=== PATIENT | female | born 1995 | race Caucasian/White ===

== ENCOUNTER 2017-06-04 10:19 | Emergency (ER) | payer OTHER ==
[~2017-06-04] VITALS: Ht 157.5 cm; Wt 45.2 kg
[2017-06-04 10:26] VITALS: TEMP 36.9; Ht 157.5 cm; Wt 45.2 kg
[2017-06-04] MEDS ORDERED: SODIUM CHLORIDE 0.9% 1000ML 500 ML IV ONE (11:24)
[2017-06-04 11:36] LABS: HEMATOCRIT 34.3 % (37-47); HEMOGLOBIN 11.6 g/dL (12.0-16.0); MEAN CELL VOLUME 89.6 fL (80-100); MEAN CORPUSCULAR HEMOGLOBIN 30.3 pg (25-34); MEAN CORPUSCULAR HGB CONC 33.8 g/dl (32-36); MEAN PLATELET VOLUME 10.4 fL (7.4-10.4); PLATELET COUNT 184 K/uL (130-400); RED CELL DISTRIBUTION WIDTH CV 12.4 % (11.5-14.5); RED CELL DISTRIBUTION WIDTH SD 40.8 fL (36.4-46.3); WHITE BLOOD COUNT 5.62 K/uL (4.8-10.8)
[2017-06-04 11:44] LABS: CALCIUM 9.2 mg/dl (8.5-10.1); CREATININE 0.69 mg/dl (0.60-1.20); POTASSIUM 3.6 mmol/L (3.5-5.1)
[2017-06-04] MEDS ORDERED: KETOROLAC TROMETHAMINE 30 MG/ML VIAL IV STA (11:57)
--- NOTE | 2017-06-04 12:49 | DIAGNOSTIC IMAGING REPORT ---
KUB HISTORY: kidney stone, right flank pain COMPARISON: None. FINDINGS: The bowel gas pattern is unremarkable. There are no dilated loops of small bowel to suggest an obstruction. There is a punctate stone within the right kidney. No definite left renal calculi. Punctate calcification within the right deep pelvis. Moderate well-formed stool seen within the colon. No pneumoperitoneum or pneumatosis. IMPRESSION: 1. There is a nonspecific punctate calcific the right deep pelvis could this could represent a phlebolith or stone within the right ureterovesical junction. 2. There is also a punctate calcification overlying the right kidney which could represent a small stone. No left renal calculi. Electronically signed by: Car Ding M.D. 06/04/2017 12:48 PM Dictated Date/Time: 06/04/2017 12:46 PM
--- NOTE | 2017-06-04 13:06 | EMERGENCY ROOM VISIT NOTE ---
History First contact with patient: 11:31 Chief Complaint: KIDNEY STONE Stated Complaint: KIDNEY STONE History of Present Illness The patient is a 21 year old female who presents to the Emergency Room with complaints of right flank pain. The patient states that she has had pain intermittently in this area for the past week. She went to [place] [facility] on Sunday where they did a CAT scan and told her that she had several kidney stones. She then followed up with Dr. Gavin Reyes on . He told her that if she does not pass it in 2 weeks he will see her in the office on the for further plan. The patient states that when she is at home she is taking the hydrocodone and/or oxycodone as prescribed by different providers. She states this does help with the pain. She only missed one episode of nausea and vomiting on Sunday. She is currently taking Flomax as well. The patient states that she last took her hydrocodone at 12 PM last evening because she wanted to try and get to work today. She went to work and within 3 hours she had severe pain. That is why she came to the emergency room. The patient states that the pain has since then subsided. The patient denies any urinary symptoms of frequency, urgency, dysuria or hematuria. The patient denies any fever. Review of Systems 10 system review was performed and was negative unless stated otherwise history of present illness. Past Medical/Surgical History Kidney stone, pyelonephritis, ectopic Social History Smoking Status: Never Smoker Housing Status: lives with family Current/Historical Medications No Active Prescriptions or Reported Meds Physical Exam Vital Signs Date Time Temp Pulse Resp B/P (MAP) Pulse Ox O2 Delivery O2 Flow Rate FiO2 06/04/17 11:52 76 16 111/81 100 Room Air 06/04/17 10:26 36.9 86 16 111/77 99 Room Air Physical Exam GENERAL: 21-year-old white female appears in no acute distress. MENTAL Status: Alert and oriented 3. MOUTH: Mucosa is moist NECK: Supple, no lymphadenopathy noted. No carotid bruits noted. LUNGS: Clear auscultation without wheezes rales or rhonchi. CARDIAC: Regular rate and rhythm without murmur. Pulses is full and equal throughout. BACK: Right CVA tenderness noted. ABDOMEN: Positive bowel sounds all 4 quadrants. Soft, nontender to palpation without organomegaly or masses. EXTREMITIES: No cyanosis or edema noted. Medical Decision & Procedures ER Provider Diagnostic Interpretation: KUB HISTORY: kidney stone, right flank pain COMPARISON: None. FINDINGS: The bowel gas pattern is unremarkable. There are no dilated loops of small bowel to suggest an obstruction. There is a punctate stone within the right kidney. No definite left renal calculi. Punctate calcification within the right deep pelvis. Moderate well-formed stool seen within the colon. No pneumoperitoneum or pneumatosis. IMPRESSION: 1. There is a nonspecific punctate calcific the right deep pelvis could this could represent a phlebolith or stone within the right ureterovesical junction. 2. There is also a punctate calcification overlying the right kidney which could represent a small stone. No left renal calculi. Electronically signed by: Car Ding M.D. 06/04/2017 12:48 PM Dictated Date/Time: 06/04/2017 12:46 PM Laboratory Results 06/04/17 11:15 06/04/17 11:15 Test 06/04/17 11:10 06/04/17 11:15 Urine Color YELLOW Urine Appearance CLOUDY (CLEAR) Urine pH 8.5 (4.5-7.5) Urine Specific [place] 1.018 (1.000-1.030) Urine Protein NEG (NEG) Urine Glucose (UA) NEG (NEG) Urine Ketones NEG (NEG) Urine Occult Blood 3+ (NEG) Urine Nitrite NEG (NEG) Urine Bilirubin NEG (NEG) Urine Urobilinogen POS (NEG) Urine Leukocyte Esterase SMALL (NEG) Urine WBC (Auto) 10-30 /hpf (0-5) Urine RBC (Auto) >30 /hpf (0-4) Urine Hyaline Casts (Auto) 1-5 /lpf (0-5) Urine Epithelial Cells (Auto) 10-20 /lpf (0-5) Urine Bacteria (Auto) NEG (NEG) Urine Test NEG (NEG) Red Blood Count 3.83 M/uL (4.2-5.4) Mean Corpuscular Volume 89.6 fL (80-100) Mean Corpuscular Hemoglobin 30.3 pg (25-34) Mean Corpuscular Hemoglobin Concent 33.8 g/dl (32-36) RDW Standard Deviation 40.8 fL (36.4-46.3) RDW Coefficient of Variation 12.4 % (11.5-14.5) Mean Platelet Volume 10.4 fL (7.4-10.4) Anion Gap 4.0 mmol/L (3-11) Est Creatinine Clear Calc Drug Dose 90.5 ml/min Estimated GFR () 142.2 Estimated GFR (Non- 122.7 BUN/Creatinine Ratio 18.4 (10-20) Calcium Level 9.2 mg/dl (8.5-10.1) Medications Administered Medications (Trade) Dose Ordered Sig/Isabelle Route Start Time Stop Time Status Last Admin Dose Admin Sodium Chloride 500 ml @ 999 mls/hr Q31M ONCE IV 06/04/17 11:24 06/04/17 11:54 DC 06/04/17 11:24 999 MLS/HR ED Course Patient was evaluated. This is the first time she is being seen in the emergency room. I had the pillowcase sewer signed a release for records from [facility]. I contacted Nidhi Rios PA-C about the patient's case. She stated if her pain is currently under control she could go home and continue outpatient treatment. She will see her in the office tomorrow at 2:00 and schedule lithotripsy for Sunday. I discussed the treatment plan with the patient and she was in agreement. Prior to me seeing the patient IV access was obtained and the patient was given 1 L normal saline. CBC and differential, renal profile was ordered and were unremarkable. She also had a urinalysis revealed positive blood otherwise was unremarkable. The patient is resting comfortably at this time. Nidhi rios PA-C also recommended that I get a KUB today before discharging the patient to home. KUB was ordered interpreted by the radiologist as above. We do not have the records from [facility] at the time of discharge therefore I told the paralegal secretary to make sure that the records are scanned in to the patient's chart so that Nidhi Rios will have them to look at tomorrow at her appointment. Patient was discharged home in stable condition. Medical Decision Since the patient was at the ER 3 different 2 at [place] and when here I felt that I needed to contact urology about the patient. Patient did not seem in any distress while she was here therefore he did not feel she needs to be admitted. The patient was in agreement. Nidhi Rios PA-C is willing to see the patient in the office tomorrow at 2 PM. [place] Drug Monitoring Program Search Results: patient reviewed within database Medication Reconcilliation Current Medication List: was personally reviewed by me Blood Pressure Screening Patient's blood pressure: Normal blood pressure Impression Primary Impression: Right flank pain Additional Impression: Kidney stone on right side Departure Information Dispostion Home / Self-Care Condition GOOD Prescriptions No Active Prescriptions or Reported Meds Referrals Jameel Santos D.O. (PCP) Forms HOME CARE DOCUMENTATION FORM, IMPORTANT VISIT INFORMATION Patient Instructions Kidney Stones - [facility] Additional Instructions Push fluids. Continue all medications as prescribed by urology. Do not take any ibuprofen! Keep scheduled appointment with Nidhi Rios PA-C tomorrow at 2 PM in the urology office at [place]. If symptoms should worsen in the interim, return to ER. Problem Qualifiers
[2017-06-04 13:41] VITALS: BP 111/81; PULSE 79; O2SAT 99
--- NOTE | 2017-06-06 17:54 | Pharmacy Progress Note ---
ED Pharmacist Culture FollowUp Date of Service: Jun 06, 2017. Lactobacillus and Gardnerella isolated from urine culture. Isolation does not always indicate infection. Patient denied urinary symptoms (frequency, urgency, dysuria, hematuria). She is being followed by urology. WBC 5.62, temp 36.9, UA with 10-20 epithelial cells. No intervention required. Case discussed w Dr. Martin.
[2017-06-07] MEDS ORDERED: OXYC7.5T65 PO (09:00)
[2017-06-07] MEDS ORDERED: TAMS0.4C38 PO (09:00)
[2017-06-08] MEDS ORDERED: NITR1CAP33 PO (08:53)
[2017-06-08] MEDS ORDERED: OXYC-57 PO (08:53)
== END 2017-06-04 13:42 | disposition home or self-care (01) ==
LOC: C.EDB 10:21 → MERGE 10:21 → C.EDC 13:42
DX: N20.0 Calculus of kidney (principal); R10.9 Unspecified abdominal pain

== ENCOUNTER → 2017-06-07 | Outpatient (CLI) | payer OTHER ==
[~2017-06-07] MED LIST: NITR1CAP33 PO; OXYC-57 PO; OXYC7.5T65 PO; TAMS0.4C38 PO
--- NOTE | 2017-06-07 18:36 | DIAGNOSTIC IMAGING REPORT ---
KUB HISTORY: Right-sided nephrolithiasis. N20.0 NephrolithiasisTO BE DONE EITHER THE NIGHT BEFORE OR MORNI COMPARISON: KUB 06/04/2017, CT 05/29/2017 FINDINGS: The bowel gas pattern is non-obstructive. There is no organomegaly. Bilateral renal shadows are obscured by bowel gas. Right-sided nephrolithiasis noted with calculi measuring up to 2 mm. Previously seen left nephrolithiasis are not visualized. Previously described punctate calcification of the right hemipelvis is also not identified. Moderate stool volume of the rectosigmoid. No pneumoperitoneum or pneumatosis. No fracture. IMPRESSION: 1. Previously described punctate calcification of the right hemipelvis is not identified on today's study. 2. Right-sided nephrolithiasis without definite ureteral calculi identified. Electronically signed by: Reynaldo Peoples M.D. 06/07/2017 6:34 PM Dictated Date/Time: 06/07/2017 6:32 PM
== END | disposition home or self-care (01) ==
LOC: C.RAD 17:33
PROVIDERS: ATTEND Nurse Practitioner Adult Health
DX: N20.0 Calculus of kidney (principal)

== ENCOUNTER → 2017-06-08 | Day surgery (SDC) | payer OTHER ==
[2017-06-07 09:01] VITALS: Ht 157.5 cm; Wt 45.5 kg
[~2017-06-08] VITALS: Ht 157.5 cm; Wt 45.5 kg
[~2017-06-08] MED LIST changes: +ATROPINE SULFATE 0.1 MG/ML 5ML SYR IV PRN; +CEFAZOLIN SOD 1000MG/7.5 ML IV PUSH IV ONE; +CIPROFLOXACIN / D5W 400 MG IV SCH; +DEXAMETHASONE SOD INJ 4 MG/ML VIAL ONE; +EpHEDrine SULFATE INJ 50 MG/ML AMP IV PRN; +FENTANYL CITRATE INJ 50 MCG/1 ML 2 ML VIAL IV PRN; +FENTANYL CITRATE INJ 50 MCG/1 ML 2 ML VIAL ONE; +HYDROmorphone INJ 0.5 MG/0.5 ML SYR IV PRN; +LACTATED RINGER'S 1000ML 1,000 ML IV SCH; +LIDOCAINE HCL 2% 2 ML VIAL (20MG/ML) ONE; +MIDAZOLAM HCL 1 MG/ML 2ML VIAL ONE; +NURSING VERBAL MED ORDER ONE; +ONDANSETRON INJ 2 MG/ML 2 ML VIAL IV PRN; +ONDANSETRON INJ 2 MG/ML 2 ML VIAL ONE; +PHENYLEPHRINE 100MCG/ML 5ML SYR IV PRN; +PROMETHAZINE HCL INJ 12.5 MG in SODIUM CHLORIDE 0.9% 50ML 50 ML IV PRN; +PROPOFOL IV EMULSION 10 MG/ML 20 ML VIAL IV ONE
--- NOTE | 2017-06-08 08:11 | History & Physical Bridge - SC ---
H&P Re-Evaluation Bridge Note: I have examined the patient, reviewed the History & Physical and in the interval since the performance of the History & Physical I have noted the following changes of clinical significance: No changes noted The Kub From June 07 does not show the stone in the pelvis but the pt has not seen it pass and continues to have intermittent pain and burning with urination . Reviewed films with pt and pts mother and will see if stone can be seen in pelvis and if not willl see if r renal stone which is larger than pelvic stone can be seen . They wish to proceed . Did discuss small size of stone and that normally would not do eswl for stones this size but they are trying to avoid ureteroscopy .Will not put her to sleep if stone not seen
--- NOTE | 2017-06-08 08:51 | [facility] Post Operative Brief Note ---
Immediate Operative Summary Operative Date Jun 08, 2017. Pre-Operative Diagnosis Right Renal Calculi Post-Operative Diagnosis Same Procedure(s) Performed Right Extracorporeal Shock Wave Lithotripsy Surgeon Dr. Virginia Warner Preforming Machine Operator Surgeon(s) None Estimated Blood Loss 0 Findings Consistent with Post-Op Diagnosis Specimens None Anesthesia Type General
--- NOTE | 2017-06-08 08:54 | Discharge Instructions-SurgCtr ---
Discharge Instructions Date of Service Jun 08, 2017. Visit Reason for Visit: Stones Discharge Discharge Diagnosis / Problem: post op r renal eswl Discharge Goals Goal(s): Decrease discomfort, Improve disease control Activity Recommendations Activity Limitations: per Instructions/Follow-up section (no driving on narcotics) Anesthesia . Post Anesthesia Instructions: If you have had General Anesthesia or IV Sedation: * Do not drive today. * Resume driving when surgeon permits. * Do not make important decisions or sign legal documents today. * Call surgeon for: 1. Temperature elevations greater than 101 degrees F. 2. Uncontrollable pain. 3. Excessive bleeding. 4. Persistent nausea and vomiting. 5. Medication intolerance (nausea, vomiting or rash). * For nausea and vomiting use only clear liquids such as: tea, soda, bouillon until nausea subsides, then gradually increase diet as tolerated. * If you have any concerns or questions, call your surgeon's office. If physician is unavailable and it is an emergency, call 911 or go to the nearest emergency room. . Diet Recommendations Home Diet: resume previous diet Procedures Procedures Performed: Right Extracorporeal Shock Wave Lithotripsy Pending Studies Studies pending at discharge: no Medical Emergencies . Who to Call and When: Medical Emergencies: If at any time you feel your situation is an emergency, please call 911 immediately. . Non-Emergent Contact Non-Emergency issues call your: Urologist Call Non-Emergent contact if: temperature is above 101 . . "Provider Documentation" section prepared by Seth Warner. .
[2017-06-08 09:55] VITALS: TEMP 36.6
[2017-06-08 10:21] VITALS: BP 108/69; PULSE 63; O2SAT 100
--- NOTE | 2017-06-08 10:27 | OPERATIVE REPORT ---
DATE OF OPERATION: 06/08/2017 PROCEDURE PERFORMED: Right renal ESWL. SURGEON: Dr. Seth Warner ANESTHESIA: General. PREOPERATIVE DIAGNOSIS: Right ureteral and right renal stone. HISTORY OF PRESENTATION AND HOSPITAL COURSE: The patient is a 21-year-old female who had early in the week been seen in the Emergency Room and then later in the week, had a CT that showed a small distal stone and a KUB that confirmed it on 06/04/2017, but the KUB yesterday did not show the stone. The patient stated that she continued to have off and ongoing pain, although less severe, but she has continued dysuria. She had been on antibiotics, but taken off when she grew out Gardnerella which was consistent with contamination. She denied any fever. I discussed the situation with the patient and the patient's mother in the holding area. I explained that I could not do lithotripsy on the distal stone that was not visible. I will be willing to attempt to visualize it without giving her anesthesia. The question would be worthwhile to do lithotripsy on a very small 2 mm renal stone given that the 1 mm stone in the pelvis, she would have trouble passing. I did agree that I would do this if do not see the distal stone and they agreed as well. Normally I would not have done this, but given the difficulty she had passing that stone, we agreed that it would be worthwhile and she wished to proceed with that. DESCRIPTION OF THE PROCEDURE: She was taken to the cysto suite without having anesthesia. The distal stone was not seen and so we proceeded to localize the 2 mm renal stone which was seen. She was given anesthesia, prepped, and then she was given shock waves that were focused on the stone up to level 3. There appeared to be fragmentation at level 3 and so was never taken above that because of its small size and the stone became quite small and difficult to see by the end of the procedure. The patient was then transferred to the recovery room in stable condition. I attest to the content of the Intraoperative Record and any orders documented therein. Any exception s are noted below.
--- NOTE | 2017-06-08 10:31 | Anesthesiology Progress Note ---
Anesthesia Post Op Note Date & Time Jun 08, 2017 at 10:30 Vital Signs Pain Intensity: 3 Vital Signs Past 12 Hours Date Time Temp Pulse Resp B/P (MAP) Pulse Ox O2 Delivery O2 Flow Rate FiO2 06/08/17 10:21 63 16 108/69 (82) 100 Room Air 06/08/17 09:55 36.6 58 16 105/71 (82) 100 Room Air 06/08/17 09:47 36.5 57 14 111/80 97 Room Air 06/08/17 09:09 36.2 71 16 114/66 100 Mask 6 06/08/17 06:24 36.9 82 16 105/71 (82) 99 Room Air Notes Mental Status: alert / awake / arousable, participated in evaluation Pt Amnestic to Procedure: Yes Nausea / Vomiting: adequately controlled Pain: adequately controlled Airway Patency, RR, SpO2: stable & adequate BP & HR: stable & adequate Hydration State: stable & adequate Anesthetic Complications: no major complications apparent
== END | disposition home or self-care (01) ==
LOC: X.SURG 06:06
PROVIDERS: ATTEND Urology
DX: N20.0 Calculus of kidney (principal); N20.1 Calculus of ureter; Z84.1 Family history of disorders of kidney and ureter; Z83.3 Family history of diabetes mellitus

== ENCOUNTER → 2017-06-18 | Outpatient (CLI) | payer OTHER ==
[~2017-06-18] MED LIST changes: -ATROPINE SULFATE 0.1 MG/ML 5ML SYR IV PRN; -CEFAZOLIN SOD 1000MG/7.5 ML IV PUSH IV ONE; -CIPROFLOXACIN / D5W 400 MG IV SCH; -DEXAMETHASONE SOD INJ 4 MG/ML VIAL ONE; -EpHEDrine SULFATE INJ 50 MG/ML AMP IV PRN; -FENTANYL CITRATE INJ 50 MCG/1 ML 2 ML VIAL IV PRN; -FENTANYL CITRATE INJ 50 MCG/1 ML 2 ML VIAL ONE; -HYDROmorphone INJ 0.5 MG/0.5 ML SYR IV PRN; -LACTATED RINGER'S 1000ML 1,000 ML IV SCH; -LIDOCAINE HCL 2% 2 ML VIAL (20MG/ML) ONE; -MIDAZOLAM HCL 1 MG/ML 2ML VIAL ONE; -NURSING VERBAL MED ORDER ONE; -ONDANSETRON INJ 2 MG/ML 2 ML VIAL IV PRN; -ONDANSETRON INJ 2 MG/ML 2 ML VIAL ONE; -PHENYLEPHRINE 100MCG/ML 5ML SYR IV PRN; -PROMETHAZINE HCL INJ 12.5 MG in SODIUM CHLORIDE 0.9% 50ML 50 ML IV PRN; -PROPOFOL IV EMULSION 10 MG/ML 20 ML VIAL IV ONE
--- NOTE | 2017-06-18 10:01 | DIAGNOSTIC IMAGING REPORT ---
KUB CLINICAL HISTORY: 21 years-old Female presenting with N20.0 Nephrolithiasis. TECHNIQUE: Single supine view of the abdomen was obtained. COMPARISON: CT from 05/29/2017 and plain radiograph from 06/07/2017. FINDINGS: Nonobstructive bowel gas pattern. Moderate stool burden. No gross pneumoperitoneum. Punctate calculus noted in the right kidney. No radiographically apparent left renal calculi though calculus was noted on prior CT. Additional lower pole right renal calculus is not apparent. No ureteral calculi. Osseous structures normal. Lung bases clear. IMPRESSION: 1. Punctate right renal calculus. Nonvisualization of left renal calculi. No radiographic apparent ureteral calculi. Electronically signed by: Jani Sabillon M.D. 06/18/2017 9:59 AM Dictated Date/Time: 06/18/2017 9:57 AM
== END | disposition home or self-care (01) ==
LOC: C.RAD 09:21
PROVIDERS: ATTEND Urology
DX: N20.0 Calculus of kidney (principal)

== ENCOUNTER → 2017-09-12 | Outpatient (CLI) | payer OTHER | END | disposition home or self-care (01) | LOC: C.LABSPEC 11:29 | PROVIDERS: ATTEND Nurse Practitioner Family | DX: N39.0 Urinary tract infection, site not specified (principal) ==

== ENCOUNTER → 2017-09-24 | Outpatient (CLI) | payer OTHER ==
--- NOTE | 2017-09-24 12:31 | DIAGNOSTIC IMAGING REPORT ---
RENAL ULTRASOUND HISTORY: Urinary tract infection. COMPARISON: None. FINDINGS: Right kidney: 9.3 cm. No hydronephrosis. Normal corticomedullary differentiation and cortical thickness. Left kidney: 10.3 cm. No hydronephrosis. Normal corticomedullary differentiation and cortical thickness. Bladder: The bladder is not well-distended. No definite bladder wall thickening. The bilateral ureteral jets were identified. IMPRESSION: Normal renal ultrasound. Electronically signed by: Car Ding M.D. 09/24/2017 12:30 PM Dictated Date/Time: 09/24/2017 12:29 PM
== END | disposition home or self-care (01) ==
LOC: C.ULTR 11:55
PROVIDERS: ATTEND Nurse Practitioner Family
DX: N39.0 Urinary tract infection, site not specified (principal)

== ENCOUNTER → 2017-09-24 | Outpatient (CLI) | payer OTHER | END | disposition home or self-care (01) | LOC: C.LABSPEC 11:39 | PROVIDERS: ATTEND Urology | DX: N39.0 Urinary tract infection, site not specified (principal) ==

== ENCOUNTER 2019-06-28 13:18 | Inpatient (IN) ==
[2019-06-28] MEDS ORDERED: KETOROLAC TROMETHAMINE 15 MG/ML VIAL IV STA (13:33)
[2019-06-28] MEDS ORDERED: SODIUM CHLORIDE 0.9% 1000ML 1,000 ML IV ONE (13:33)
--- NOTE | 2019-06-28 13:39 | Emergency Department Note ---
History of Present Illness General Chief complaint: Kidney Stone Stated complaint: KIDNEY STONE - POSSIBLE UTI WELL Time Seen by Provider: 06/28/19 13:25 Source: patient Mode of arrival: ambulatory Limitations: no limitations History of Present Illness Provider complaint: Left flank pain Onset (ago): week(s) 1 Location: back Radiation: abdomen Severity: moderate Pain Consistency: + intermittent Maximum Pain Intensity: 5 Quality: + stabbing Relieved By: + none Associated symptoms: + other (Burning on urination with frequency); no chest pain, no cough, no fever/chills, no nausea/vomiting and no shortness of breath This is a 23-year-old female with a history of multiple kidney stones in the past presenting with left flank pain for the past week. It is located in the left mid flank and sometimes radiates into the left lower abdomen. She rates it a 5 out of 10 in severity. It is intermittent. It is sharp in nature. No alleviating factors. She states it feels similar to her previous kidney stones. She had an x-ray done 2 days ago at her PCPs office which did not show any signs of a stone. She has urinary symptoms associated with her pain including burning on urination as well as urinary frequency. She did take Azo and so her urine is discolored. She denies any fever, vomiting, chest pain, shortness of breath, cough or cold symptoms or known exposure to COVID-19. She denies any chance of or any abnormal vaginal discharge or bleeding. Home Medications Home Medications Medication Instructions Recorded Confirmed Type No Known Home Medications 06/28/19 06/28/19 History Allergies Allergy/AdvReac Type Severity Reaction Status Date / Time Cipro Allergy Unknown Itching/Irr Verified 06/08/17 07:49 itation ciprofloxacin Allergy Unknown Itching/Irr Verified 06/28/19 15:30 itation nitrofurantoin Allergy Itching Verified 06/28/19 15:30 [From Macrobid] Past Med/Surg History Medical History (Updated 06/28/19 @ 17:52 by Jg Eng MD) Kidney stones Surgical History H/O lithotripsy [place] teeth extracted Social History Feels Safe at Home: Yes Smoking Status: Never smoker Hx Alcohol Use: Yes (last drink 0.5 mimosa June 18) Alcohol Intake Frequency: Rarely Review of Systems See HPI for pertinent positives & negatives. and A total of 10 systems reviewed and were otherwise negative Physical Exam Vital Signs Vital Signs - 24 hr 06/28/19 13:19 06/28/19 14:26 Temperature 36.7 C Temperature Source Oral Pulse Rate 86 Pulse Rate [Finger] 112 H Respiratory Rate 20 20 Respiratory Effort / Characteristics Non-Labored Respiratory Depth Normal Blood Pressure 118/90 Blood Pressure [Right Arm] 131/88 Blood Pressure Mean 99 Blood Pressure Mean [Right Arm] 102 Pulse Oximetry 99 100 Oxygen Delivery Method Room Air Room Air Sepsis Recent Fever Within 48 Hours No Sepsis Action Taken by Nursing No Action Required Constitutional: Vital signs reviewed. Eyes: Pupils are equal round reactive to light. Conjunctiva are noninjected. ENT: Pharynx is clear without erythema or exudate. Mucous membranes are moist. Neck supple without meningeal signs. Respiratory: Clear to auscultation bilaterally. Breath sounds are equal bilaterally. Cardiovascular: Regular rate and rhythm. No rubs or gallops. GI: Soft, nondistended and nontender. Bowel sounds are present. Musculoskeletal: No peripheral edema. No lower extremity tenderness. No CVA tenderness. Integumentary: No cyanosis. or jaundice. Neurological: The patient is awake and alert. No focal deficits. Psychiatric: Normal affect. Not anxious appearing. Course Administered Medications Discontinued Medications Sodium Chloride (Nss 1000ml) 1,000 mls @ 999 mls/hr IV .Q1H1M ONE Stop: 06/28/19 14:33 Last Infusion: 06/28/19 14:34 Dose: 0 mls/hr Documented by: [id number] Admin: 06/28/19 13:40 Dose: 999 mls/hr Documented by: [id number] Ketorolac Tromethamine (Toradol) 10 mg IV NOW STA Stop: 06/28/19 13:34 Last Admin: 06/28/19 13:45 Dose: 10 mg Documented by: [id number] Medical Decision Making Differential Diagnosis Renal colic, obstructive uropathy, UTI, pyelonephritis, strain Medical Records Attestation: I reviewed the patient's medical records. I did perform a limited focused review of portions of the patient's old chart on the electronic medical record. The patient has had no recent pertinent visits to this hospital. The patient did have a CT scan of the abdomen pelvis in February 2018 which showed a 3 mm calcification in the left kidney. Home Medications Current Medication List: was personally reviewed by me Laboratory Data Attestation: I reviewed the patient's lab results. Result diagrams: 06/28/19 13:39 06/28/19 13:39 Lab Results 06/28/19 06/28/19 06/28/19 Range/Units 13:39 13:39 13:39 WBC 10.66 (4.8-10.8) K/uL RBC 4.05 L (4.2-5.4) M/uL Hgb 12.5 (12.0-16.0) g/dL Hct 36.1 L (37-47) % MCV 89.1 (80-100) fL MCH 30.9 (25-34) pg MCHC 34.6 (32-36) g/dL RDW Std Deviation 39.7 (36.4-46.3) fL RDW Coeff of Aime 12.2 (11.5-14.5) % Plt Count 218 (130-400) K/uL MPV 10.0 (7.4-10.4) fL Immature Gran % (Auto) 0.3 % Neut % (Auto) 76.8 % Lymph % (Auto) 14.0 % [place] % (Auto) 8.5 % Eos % (Auto) 0.3 % Baso % (Auto) 0.1 % Immature Gran # (Auto) 0.03 H (0.00-0.02) K/uL Neut # (Auto) 8.19 H (1.4-6.5) K/uL Lymph # (Auto) 1.49 (1.2-3.4) K/uL [place] # (Auto) 0.91 H (0.11-0.59) K/uL Eos # (Auto) 0.03 (0-0.5) K/uL Baso # (Auto) 0.01 (0-0.2) K/uL Sodium 137 (136-145) mmol/L Potassium 3.5 (3.5-5.1) mmol/L Chloride 106 (98-107) mmol/L Carbon Dioxide 25 (21-32) mmol/L Anion Gap 6.0 (3-11) BUN 17 (7-18) mg/dl Creatinine 0.94 (0.6-1.2) mg/dl Est Cr Clr Drug Dosing 68.3 ml/min Est GFR ( Amer) 97.7 Est GFR (Non-Af Amer) 84.3 BUN/Creatinine Ratio 18.3 (10-20) Glucose 92 (70-99) mg/dl Calcium 8.8 (8.5-10.1) mg/dl Total Bilirubin 0.6 (0.2-1) mg/dl AST 12 L (15-37) U/L ALT 17 (12-78) U/L Alkaline Phosphatase 45 (45-117) U/L Total Protein 7.7 (6.4-8.2) gm/dl Albumin 4.1 (3.4-5.0) gm/dl Globulin 3.6 (2.5-4.0) gm/dl Albumin/Globulin Ratio 1.1 (0.9-2) Lipase 9259 H (73-393) U/L HCG, Qual Negative (Negative) Urine Color Urine Appearance (Clear) Urine pH (4.5-7.5) Ur Specific [place] (1.000-1.060) Urine Protein (Negative) Urine Glucose (UA) (Negative) Urine Ketones (Negative) Urine Blood (Negative) Urine Nitrite (Negative) Urine Bilirubin (Negative) Urine Urobilinogen (Negative) Ur Leukocyte Esterase (Negative) Urine RBC (0-4) /hpf Urine WBC (0-5) /hpf Ur Epithelial Cells (0-5) /lpf Calcium Oxalate Crystal (None Prsent) Urine Bacteria (Negative) Urine Mucus (None Prsent) 06/28/19 Range/Units 13:39 WBC (4.8-10.8) K/uL RBC (4.2-5.4) M/uL Hgb (12.0-16.0) g/dL Hct (37-47) % MCV (80-100) fL MCH (25-34) pg MCHC (32-36) g/dL RDW Std Deviation (36.4-46.3) fL RDW Coeff of Aime (11.5-14.5) % Plt Count (130-400) K/uL MPV (7.4-10.4) fL Immature Gran % (Auto) % Neut % (Auto) % Lymph % (Auto) % [place] % (Auto) % Eos % (Auto) % Baso % (Auto) % Immature Gran # (Auto) (0.00-0.02) K/uL Neut # (Auto) (1.4-6.5) K/uL Lymph # (Auto) (1.2-3.4) K/uL [place] # (Auto) (0.11-0.59) K/uL Eos # (Auto) (0-0.5) K/uL Baso # (Auto) (0-0.2) K/uL Sodium (136-145) mmol/L Potassium (3.5-5.1) mmol/L Chloride (98-107) mmol/L Carbon Dioxide (21-32) mmol/L Anion Gap (3-11) BUN (7-18) mg/dl Creatinine (0.6-1.2) mg/dl Est Cr Clr Drug Dosing ml/min Est GFR ( Amer) Est GFR (Non-Af Amer) BUN/Creatinine Ratio (10-20) Glucose (70-99) mg/dl Calcium (8.5-10.1) mg/dl Total Bilirubin (0.2-1) mg/dl AST (15-37) U/L ALT (12-78) U/L Alkaline Phosphatase (45-117) U/L Total Protein (6.4-8.2) gm/dl Albumin (3.4-5.0) gm/dl Globulin (2.5-4.0) gm/dl Albumin/Globulin Ratio (0.9-2) Lipase (73-393) U/L HCG, Qual (Negative) Urine Color [place] Urine Appearance Slightly Cloudy A (Clear) Urine pH (4.5-7.5) Ur Specific [place] 1.023 (1.000-1.060) Urine Protein Negative (Negative) Urine Glucose (UA) (Negative) Urine Ketones (Negative) Urine Blood (Negative) Urine Nitrite (Negative) Urine Bilirubin (Negative) Urine Urobilinogen (Negative) Ur Leukocyte Esterase (Negative) Urine RBC 0-4 (0-4) /hpf Urine WBC 5-10 H (0-5) /hpf Ur Epithelial Cells 10-20 H (0-5) /lpf Calcium Oxalate Crystal Present A (None Prsent) Urine Bacteria 1+ H (Negative) Urine Mucus Present A (None Prsent) Imaging Data Radiologist's Impression: US renal/blad retro comp CLINICAL HISTORY: 23 years-old Female presenting with left flank pain, known left nephrolithiasis, eval for hydro. TECHNIQUE: Real-time grayscale and limited color Doppler ultrasound imaging of the kidneys and bladder was performed. COMPARISON: CT from 02/28/2018 FINDINGS: Right kidney: Normal echogenicity with preserved corticomedullary differentiation. Normal cortical thickness. Right kidney measures 10.5 cm. No hydronephrosis. No convincing evidence of calculus or mass. Left kidney: Normal echogenicity with preserved corticomedullary differentiation. Normal cortical thickness. Left kidney measures 11.7 cm. No hydronephrosis. No convincing evidence of calculus or mass. Bladder: Normal. Bilateral ureteral jets present. Other: None. IMPRESSION: 1. Normal renal ultrasound. No obstruction. No sonographic evidence of renal calculi. The prior punctate left renal calculus seen on CT is not demonstrated on this exam. ACT 112: Negative or not required by law. Electronically signed by: Jani Sabillon M.D. 06/28/2019 2:36 PM Blood Pressure Blood Pressure Findings: Elevated blood pressure Blood Pressure Disposition: Referred to patients primary care provider MDM Narrative I did evaluate the patient as noted above. IV access was established. I did treat the patient with normal saline IV and Toradol 10 mg IV. I did order a urine analysis. The interpretation is limited due to the Azo she took but there are signs of mucus and bacteria. She will require antibiotics as an inpatient. I did order and review the patient's blood work as noted in the electronic medical record. CBC shows a white count of 10.6. Hemoglobin is 12.5. Electrol ytes are unremarkable. LFTs are unremarkable. Lipase is significantly elevated over 9000. I did order an ultrasound of the kidneys. I did review the images myself as well as the radiology report as described above. There is no evidence of obstruction. The left renal calculus is no longer seen from prior CT scan. I did discuss the test results with the patient. I did recommend hospitalizati on for further care and evaluation. I did ask her further questions and she stated that she only drinks alcohol about once a month and does not drink heavily. She has not on other medications other than Azo which I do not believe causes pancreatitis. She has no tenderness in the right upper quadrant to suggest gallstones or biliary obstruction. I did recommend hospitalization. I did discuss case with the hospitalist and major case detective. Impression & Plan Pancreatitis, Acute UTI Discharge Plan Visit Data Chief Complaint: Kidney Stone Stated Complaint: KIDNEY STONE - POSSIBLE UTI WELL ED Provider: Jg Eng Discharge Problem: Pancreatitis, Acute UTI Patient Disposition: Admitted As Inpatient Discharge Instructions Interventions: ED Discharge Assessment Last Done: 06/28/19 17:26
[2019-06-28 13:52] LABS: Basophils # (auto) 0.01 K/uL (0-0.2); Basophils % (auto) 0.1 %; Eosinophils # (auto) 0.03 K/uL (0-0.5); Eosinophils % (auto) 0.3 %; Hematocrit (blood only) 36.1 % (37-47); Hemoglobin 12.5 g/dL (12.0-16.0); Immature Granulocytes # (auto) 0.03 K/uL (0.00-0.02); Immature Granulocytes % (auto) 0.3 %; Lymphocytes # (auto) 1.49 K/uL (1.2-3.4); Mean Corpuscular Hemoglobin 30.9 pg (25-34); Mean Corpuscular Hgb Conc 34.6 g/dL (32-36); Mean Corpuscular Volume 89.1 fL (80-100); Monocytes # (auto) 0.91 K/uL (0.11-0.59); Monocytes % (auto) 8.5 %; Neutrophils # (auto) 8.19 K/uL (1.4-6.5); Neutrophils % (auto) 76.8 %; Platelet Count 218 K/uL (130-400); RDW Coefficient of Variation 12.2 % (11.5-14.5); RDW Standard Deviation 39.7 fL (36.4-46.3); Red Blood Count 4.05 M/uL (4.2-5.4); White Blood Count 10.66 K/uL (4.8-10.8)
[2019-06-28 14:05] LABS: Appearance Urine Slightly Cloudy (Clear); Color Urine Orange
[2019-06-28 14:06] LABS: Protein Urine Negative (Negative); Specific Gravity Urine 1.023 (1.000-1.060); Sulfosalicylic Acid Urine Negative (Negative)
[2019-06-28 14:11] LABS: Albumin Level 4.1 gm/dl (3.4-5.0); BUN Creatinine Ratio 18.3 (10-20); Calcium 8.8 mg/dl (8.5-10.1); Creatinine Clr Calc Pharmacy 68.3 ml/min; Est GFR (African American) 97.7; Est GFR (Non-African American) 84.3; Potassium 3.5 mmol/L (3.5-5.1)
[2019-06-28 14:12] LABS: Bacteria Urine 1+ (Negative); Calcium Oxalate Crystals Urine Present (None Prsent); Mucus Urine Present (None Prsent); RBC Urine 0-4 /hpf (0-4)
[2019-06-28 14:14] LABS: Albumin Globulin Ratio 1.1 (0.9-2); Bilirubin,Total 0.6 mg/dl (0.2-1); Globulin 3.6 gm/dl (2.5-4.0); Total Protein 7.7 gm/dl (6.4-8.2)
[2019-06-28 14:20] LABS: Pregnancy Test, Serum Negative (Negative)
--- NOTE | 2019-06-28 14:37 | Ultrasound Report ---
US renal/blad retro comp CLINICAL HISTORY: 23 years-old Female presenting with left flank pain, known left nephrolithiasis, ev al for hydro. TECHNIQUE: Real-time grayscale and limited color Doppler ultrasound imaging of the kidneys and bladde r was performed. COMPARISON: CT from 02/28/2018 FINDINGS: Right kidney: Normal echogenicity with preserved corticomedullary differentiation. Normal cortical th ickness. Right kidney measures 10.5 cm. No hydronephrosis. No convincing evidence of calculus or mass . Left kidney: Normal echogenicity with preserved corticomedullary differentiation. Normal cortical thi ckness. Left kidney measures 11.7 cm. No hydronephrosis. No convincing evidence of calculus or mass. Bladder: Normal. Bilateral ureteral jets present. Other: None. IMPRESSION: 1. Normal renal ultrasound. No obstruction. No sonographic evidence of renal calculi. The prior pun darden left renal calculus seen on CT is not demonstrated on this exam. ACT 112: Negative or not required by law. Electronically signed by: Jani Sabillon M.D. 06/28/2019 2:36 PM
--- NOTE | 2019-06-28 16:08 | History & Physical Report ---
Date of Service June 28, 2019 Assessment & Plan (1) Pancreatitis: * 23 female with hx nephrolithiasis admitted with lipase 9259. Denies recent etoh use. Patient also with possible kidney stones -- calcium oxalate on UA. Renal US without evidence for obstruction or calculi. Could consider KUB vs CT * Admit to med/surg * Repeat lipase * Supportive treatment * LR @ 175cc/hr * Zofran IV prn nausea * Morphine 2mg IV prn pain -- would avoid NSAIDs * Lipid, TSH in AM to r/o secondary causes. * Repeat labs in AM (2) Kidney stones: * Strong personal history. Last lithotripsy 2 years ago, per patient * Had stones approx 1 year ago, managed conservatively * Placed on Rocephin IV empirically * Follow UA -- c/s * Consider KUB in AM to evaluate for stone if CT A/P not obtained (awaiting results of repeat lipase) (3) DVT prophylaxis: * Low risk -- SCDs, ambulation encouraged History of Present Illness Chief Complaint: Left Flank Pain Primary Care Provider: Jameel Danielle 23 year old white female with PMH significant for nephrolithiasis presented to emergency department for left flank and abdominal pain that started last Sunday and worsened to the point where she was no longer able to take the pain. THe patient rates the pain as a 5/10 after receiving toradol, but states it had been a 9/10 this morning. She states her last alcoholic beverage was 1/2 mimosa June 18 and she has never had gallstones in the past. She states she thought she had a kidney stone because she has had a significant history with these. She has been seen by Dr. Warner and Dr. Reyes in the past and states she believes her last kidney stone was one year ago that she was able to pass with medication and that her last lithotripsy was approximately 2 years ago per her account. She states she had been rotating Motrin and ibuprofen, 2 tablets each, around the clock, and had taken 4 ibuprofen before bed last evening. Eating does not make the pain better or worse. Denies any epigastric pain at this time. No nausea or vomiting. Denies fever or chills. Endorses urinary symptoms such as frequency. Of note, she states she had started Azol on Sunday in hopes of helping the stone pass. She also notes that she did have a prescription for a tooth infection two weeks ago but will ask her mother to see if she can find the bottle to determine what this was. She is not on any home medications. Denies any significant PMH outside of stones, which she states she had a KUB done e arlier this year but was told she had some stool burden and had taken Miralax three times this week and had resolved constipation. Denies any family history of gallstones, elevated triglycerides or lipid panel. ER Course: 1L NSS. TOradol 10mg IV x 1. WBC 10.6k. H/h 12.5/36. Plt 218. BMP unremarkable. AST low at 12. Lipase 9259. UA slightly cloudy, 1+ bacteria, 5- 10wbc, 10-20epi, +calcium oxalate crystals. Allergies Allergy/AdvReac Type Severity Reaction Status Date / Time Cipro Allergy Unknown Itching/Irr Verified 06/08/17 07:49 itation ciprofloxacin Allergy Unknown Itching/Irr Verified 06/28/19 15:30 itation nitrofurantoin Allergy Itching Verified 06/28/19 15:30 [From Macrobid] Home Medications Home Medications Medication Instructions Recorded Confirmed Type No Known Home Medications 06/28/19 06/28/19 History Past Med/Surg History Medical History (Updated 06/28/19 @ 17:52 by Jg Eng MD) Kidney stones Surgical History H/O lithotripsy [place] teeth extracted Family History Denies family history of Kidney stones Pancreatitis Social History Feels Safe at Home: Yes Smoking Status: Never smoker Hx Alcohol Use: Yes (last drink 0.5 mimosa June 18) Alcohol Intake Frequency: Rarely Review of Systems Review of Systems: All systems reviewed & are unremarkable except as noted in HPI & below Constitutional: no fever and no chills Eyes: no spots in vision and no tunnel vision Ear, Nose, Mouth, Throat: no sore throat and no dysphagia Respiratory: no cough and no dyspnea Cardiovascular: no chest pain, no palpitations, no syncope and no edema Gastrointestinal: + abdominal pain (left lower quadrant); no vomiting Genitourinary: + difficulty urinating and + urinary frequency; no dysuria Musculoskeletal: + back pain; no swelling Integumentary: no rash and no lesions Neurologic: no gait abnormality, no tremor(s) and no syncope Psychiatric: no depression and no anxiety Endocrine: no cold intolerance and no heat intolerance Hematologic / Lymphatic: no easy bleeding and no easy bruising Allergy / Immunological: no cough and no dyspnea Physical Exam Constitutional: WD/WN, vitals as above no acute distress Eyes: + anicteric sclerae and PERRL ENMT: external ear and nose normal, oropharynx normal Neck: trachea midline, no thyromegaly Respiratory: normal respiratory effort, lungs clear to auscultation Cardiovascular: RRR, no murmur, no edema Gastrointestinal (Abdomen): normal bowel sounds, soft, nontender, no hepatosplenomegaly Percussion/Palpation: no guarding and abdomen not rigid Musculoskeletal: no cyanosis or clubbing, extremities motor strength 5/5 Skin: no rashes, warm and dry Neurologic: PERRL, EOMI, accommodation nl, no face palsy, no dysarthria Psychiatric: A+Ox3, euthymic affect Genitourinary: LEFT sided CVA tenderness Results & Data Results & Data ([facility]) Vital Signs (Past 12 Hours) Vital Signs Temp Pulse Pulse Resp BP BP Pulse Ox 06/28/19 14:26 112 H 20 131/88 100 06/28/19 13:19 36.7 C 86 20 118/90 99 Laboratory Results 06/28/19 06/28/19 06/28/19 Range/Units 13:39 13:39 13:39 WBC 10.66 (4.8-10.8) K/uL RBC 4.05 L (4.2-5.4) M/uL Hgb 12.5 (12.0-16.0) g/dL Hct 36.1 L (37-47) % MCV 89.1 (80-100) fL MCH 30.9 (25-34) pg MCHC 34.6 (32-36) g/dL RDW Std Deviation 39.7 (36.4-46.3) fL RDW Coeff of Aime 12.2 (11.5-14.5) % Plt Count 218 (130-400) K/uL MPV 10.0 (7.4-10.4) fL Immature Gran % (Auto) 0.3 % Neut % (Auto) 76.8 % Lymph % (Auto) 14.0 % [place] % (Auto) 8.5 % Eos % (Auto) 0.3 % Baso % (Auto) 0.1 % Immature Gran # (Auto) 0.03 H (0.00-0.02) K/uL Neut # (Auto) 8.19 H (1.4-6.5) K/uL Lymph # (Auto) 1.49 (1.2-3.4) K/uL [place] # (Auto) 0.91 H (0.11-0.59) K/uL Eos # (Auto) 0.03 (0-0.5) K/uL Baso # (Auto) 0.01 (0-0.2) K/uL Sodium 137 (136-145) mmol/L Potassium 3.5 (3.5-5.1) mmol/L Chloride 106 (98-107) mmol/L Carbon Dioxide 25 (21-32) mmol/L Anion Gap 6.0 (3-11) BUN 17 (7-18) mg/dl Creatinine 0.94 (0.6-1.2) mg/dl Est Cr Clr Drug Dosing 68.3 ml/min Est GFR ( Amer) 97.7 Est GFR (Non-Af Amer) 84.3 BUN/Creatinine Ratio 18.3 (10-20) Glucose 92 (70-99) mg/dl Calcium 8.8 (8.5-10.1) mg/dl Total Bilirubin 0.6 (0.2-1) mg/dl AST 12 L (15-37) U/L ALT 17 (12-78) U/L Alkaline Phosphatase 45 (45-117) U/L Total Protein 7.7 (6.4-8.2) gm/dl Albumin 4.1 (3.4-5.0) gm/dl Globulin 3.6 (2.5-4.0) gm/dl Albumin/Globulin Ratio 1.1 (0.9-2) Lipase 9259 H (73-393) U/L HCG, Qual (Negative) Urine Color [place] Urine Appearance Slightly Cloudy A (Clear) Urine pH (4.5-7.5) Ur Specific [place] 1.023 (1.000-1.060) Urine Protein Negative (Negative) Urine Glucose (UA) (Negative) Urine Ketones (Negative) Urine Blood (Negative) Urine Nitrite (Negative) Urine Bilirubin (Negative) Urine Urobilinogen (Negative) Ur Leukocyte Esterase (Negative) Urine RBC 0-4 (0-4) /hpf Urine WBC 5-10 H (0-5) /hpf Ur Epithelial Cells 10-20 H (0-5) /lpf Calcium Oxalate Crystal Present A (None Prsent) Urine Bacteria 1+ H (Negative) Urine Mucus Present A (None Prsent) 06/28/19 Range/Units 13:39 WBC (4.8-10.8) K/uL RBC (4.2-5.4) M/uL Hgb (12.0-16.0) g/dL Hct (37-47) % MCV (80-100) fL MCH (25-34) pg MCHC (32-36) g/dL RDW Std Deviation (36.4-46.3) fL RDW Coeff of Aime (11.5-14.5) % Plt Count (130-400) K/uL MPV (7.4-10.4) fL Immature Gran % (Auto) % Neut % (Auto) % Lymph % (Auto) % [place] % (Auto) % Eos % (Auto) % Baso % (Auto) % Immature Gran # (Auto) (0.00-0.02) K/uL Neut # (Auto) (1.4-6.5) K/uL Lymph # (Auto) (1.2-3.4) K/uL [place] # (Auto) (0.11-0.59) K/uL Eos # (Auto) (0-0.5) K/uL Baso # (Auto) (0-0.2) K/uL Sodium (136-145) mmol/L Potassium (3.5-5.1) mmol/L Chloride (98-107) mmol/L Carbon Dioxide (21-32) mmol/L Anion Gap (3-11) BUN (7-18) mg/dl Creatinine (0.6-1.2) mg/dl Est Cr Clr Drug Dosing ml/min Est GFR ( Amer) Est GFR (Non-Af Amer) BUN/Creatinine Ratio (10-20) Glucose (70-99) mg/dl Calcium (8.5-10.1) mg/dl Total Bilirubin (0.2-1) mg/dl AST (15-37) U/L ALT (12-78) U/L Alkaline Phosphatase (45-117) U/L Total Protein (6.4-8.2) gm/dl Albumin (3.4-5.0) gm/dl Globulin (2.5-4.0) gm/dl Albumin/Globulin Ratio (0.9-2) Lipase (73-393) U/L HCG, Qual Negative (Negative) Urine Color Urine Appearance (Clear) Urine pH (4.5-7.5) Ur Specific [place] (1.000-1.060) Urine Protein (Negative) Urine Glucose (UA) (Negative) Urine Ketones (Negative) Urine Blood (Negative) Urine Nitrite (Negative) Urine Bilirubin (Negative) Urine Urobilinogen (Negative) Ur Leukocyte Esterase (Negative) Urine RBC (0-4) /hpf Urine WBC (0-5) /hpf Ur Epithelial Cells (0-5) /lpf Calcium Oxalate Crystal (None Prsent) Urine Bacteria (Negative) Urine Mucus (None Prsent) Diagnostic Findings KUB IMPRESSION: 1. Normal renal ultrasound. No obstruction. No sonographic evidence of renal calculi. The prior punctate left renal calculus seen on CT is not demonstrated on this exam. Supervising Physician Co-Signing Physician Notes Attending attestation & admission note: Pt seen/examined, chart reviewed, admission care plan d/w BRIDGETT Santiago. I agree w/ the hickman components of her admission documentation. 23yo female w/ history of prior kidney stones requiring lithotripsy presenting with 1 week of left-sided flank pain. Some of the pain began to radiate to the left side of the abdomen over the last day. No fevers/chills. Some dysuria. She never had central/periumbilical pain. About 2 weeks ago she had a GI illness consisting of vomiting/abdominal pain. Did not seek medical attention for this. Also had tooth extraction recently and was on amoxicillin post-op for such. PMH, PSH, allergies, meds, sochx - reviewed VSS, afebrile gen - NAD heart - RRR, s1 s2 lungs - CTA b/l abd - soft NT ND BS+ no HSM; mild left flank discomfort to palpation ext - no edema cbc, bmp, u/a, renal u/s - reviewed A/P: 1. left flank pain 2. calcium oxalate crystals on urine micro 3. markedly elevated lipase but in absence of pancreatitis symptoms repeat lipase now to ensure this was not lab error as presentation more c/w renal colic rather than pancreatitis if repeat is still high then would obtain CT abd/pelvis to check pancreas as well as check for ureteral stone on left rocephin for possible UTI urine cx hydrate with IVF if kidney stone is indeed present then add alpha jazlyn Lance Lynch MD PG Care Time/CCT Total # of Minutes Spent Total Time Spent with Patient: Total time spent is greater than 50% in coordination of care (as documented) at patient's floor/unit and/or counseling patient: Coding Level of Care Code 43439 Initial Inpt Care Lvl 3 Diagnoses Pancreatitis K85.90 Kidney stones N20.0 DVT prophylaxis Z29.9
[2019-06-28] MEDS ORDERED: ONDANSETRON INJ 2 MG/ML 2 ML VIAL IV PRN (17:47)
[2019-06-28] MEDS ORDERED: MoRPHine SULFATE 2 MG/ML CARP IV PRN (17:47)
[2019-06-28] MEDS: LACTATED RINGER'S 1,000 ML IV SCH (18:08)
[2019-06-28] MEDS ORDERED: IOVERSOL 100ml IV PRN (18:33)
--- NOTE | 2019-06-28 18:47 | CT Scan Report ---
CT abd pelvis IV con only CLINICAL HISTORY: 23 years-old Female presenting with pancreatitis, possible nephrolithiasis. TECHNIQUE: Multidetector CT of the abdomen and pelvis was performed after the administration of intra venous contrast. IV contrast: 92 mL of Optiray 320. One or more dose lowering techniques were used co nsistent with the principles of ALARA (as low as reasonably achievable), including automatic exposure control, mA or kV adjustment to individual patient size, and/or use of iterative reconstruction. COMPARISON: 02/28/2018. CT DOSE (mGy.cm): The estimated cumulative dose is 259.47 mGy.cm. FINDINGS: Hand Former Helper topogram: Unremarkable. Lung bases: Normal heart size. No pericardial or pleural effusion. No focal infiltrate or nodule at t he lung bases. Liver: Normal morphology. No liver lesion. Patent hepatic vasculature. Periportal edema likely relate s to aggressive volume resuscitation. Biliary: No intrahepatic or extrahepatic biliary ductal dilatation. Normal gallbladder. Pancreas: Normal. Spleen: Normal. Adrenal glands: Normal. Kidneys and ureters: Hypoenhancement of the left kidney in comparison to the right with mild pelvocal iectasis of the left renal collecting system and mild distention of the left ureter to the level of a n obstructing 4 mm calculus in the distal left ureter a few centimeters proximal to the ureterovesica l junction. No additional renal calculus. Bladder: Incompletely evaluated secondary to underdistention. No bladder calculi. Pelvic organs: Dominant follicle in the left ovary. Uterus normal. Bowel: Mild stool burden in normal caliber colon. The appendix is normal. No bowel obstruction. Peritoneal cavity: Small free fluid in the pelvis, likely physiologic. No free intraperitoneal gas. Lymph nodes: No enlarged lymph nodes in the abdomen or pelvis. Vasculature: Aorta and IVC patent and normal in caliber. Abdominal wall: Normal. Musculoskeletal: Normal. IMPRESSION: 1. Obstructing 4 mm distal left ureteral calculus with resultant mild left hydroureteronephrosis. No additional renal or ureteral calculus. 2. Additional findings as above. ACT 112: Negative or not required by law. Electronically signed by: Jani Sabillon M.D. 06/28/2019 6:45 PM
[2019-06-28] MEDS: cefTRIAXone SODIUM 1,000 MG in DEXTROSE 5% 50 ML IV SCH (18:48)
[2019-06-28] MEDS: TAMSULOSIN HCL 0.4 MG CAP PO SCH (20:43)
[2019-06-29] MEDS: LACTATED RINGER'S 1,000 ML IV SCH ×4 (00:51→19:47)
[2019-06-29 06:57] LABS: Basophils # (auto) 0.02 K/uL (0-0.2); Basophils % (auto) 0.4 %; Eosinophils # (auto) 0.06 K/uL (0-0.5); Eosinophils % (auto) 1.3 %; Hematocrit (blood only) 30.3 % (37-47); Hemoglobin 10.3 g/dL (12.0-16.0); Lymphocytes # (auto) 1.35 K/uL (1.2-3.4); Mean Corpuscular Hemoglobin 30.7 pg (25-34); Mean Corpuscular Volume 90.2 fL (80-100); Mean Platelet Volume 10.3 fL (7.4-10.4); Monocytes % (auto) 8.6 %; Neutrophils # (auto) 2.83 K/uL (1.4-6.5); Neutrophils % (auto) 60.7 %; Platelet Count 163 K/uL (130-400); RDW Coefficient of Variation 12.3 % (11.5-14.5); RDW Standard Deviation 40.3 fL (36.4-46.3); Red Blood Count 3.36 M/uL (4.2-5.4); White Blood Count 4.66 K/uL (4.8-10.8)
[2019-06-29 07:20] LABS: Alanine Aminotransferase 12 U/L (12-78); Aspartate Aminotransferase 13 U/L (15-37); BUN Creatinine Ratio 17.5 (10-20); Blood Urea Nitrogen 10 mg/dl (7-18); Carbon Dioxide 23 mmol/L (21-32); Chloride 111 mmol/L (98-107); Creatinine Clr Calc Pharmacy 111.5 ml/min; Est GFR (African American) > 150.0; Est GFR (Non-African American) 129.6; Glucose 83 mg/dl (70-99); Potassium 3.6 mmol/L (3.5-5.1); Sodium 140 mmol/L (136-145)
[2019-06-29 07:33] LABS: Alkaline Phosphatase 44 U/L (45-117); Bilirubin,Total 0.7 mg/dl (0.2-1); Chol HDL Ratio 3; Cholesterol 108 mg/dl (0-200); HDL Cholesterol 35 mg/dl; LDL Cholesterol Calculated 62 mg/dl; Thyroid Stimulating Hormone 0.853 uIu/ml (0.300-4.500); Triglycerides 55 mg/dl (0-150); VLDL Cholesterol 11 mg/dl
[2019-06-29] MEDS: TAMSULOSIN HCL 0.4 MG CAP PO SCH (08:26)
--- NOTE | 2019-06-29 08:32 | Hospitalist Progress Note ---
Date of Service June 29, 2019 Assessment & Plan (1) Renal calculus, left: * Strong personal history. Last lithotripsy 2 years ago, per patient * Had stones approx 1 year ago, managed conservatively * Placed on Rocephin IV empirically * Follow UA c/s * CT A/P evening of 06/27 reveal 4mm obstructing distal left ureteral calculus with resultant mild left hydroureteronephrosis * Urology consulted -- appreciate recommendations/assistance * NPO * Continue LR @ 175cc/hr (already on for acute pancreatitis) * Plan for OR this afternoon for intervention with Dr. Marrero (2) Pancreatitis: * 23 female with hx nephrolithiasis admitted with lipase 9259. Denies rec ent etoh use. Patient also with possible kidney stones -- calcium oxalate on UA. Renal US without evidence for obstruction or calculi. Possible acute pancreatitis in setting of motrin/ibuprofen use as no other causes identified. * Lipid panel wnl, TSH wnl * Lipase improved to 807 from 9259 on admission * Supportive treatment * LR @ 175cc/hr --> could transition to PO intake later this evening or in the morning * Zofran IV prn nausea, morphine prn pain. Avoid NSAIDs * Trend labs (3) DVT prophylaxis: * Low risk -- SCDs, ambulation encouraged Dispo: OR this afternoon with Dr. Marrero. Likely discharge Sunday Admission and Anticipated Discharge Date Admission Date: June 28, 2019 Supervising Physician Co-Signing Physician Notes Attending Attestation - Chart reviewed, care plan d/w BRIDGETT Santiago. I agree w/ the hickman components of her documentation. Cysto report reviewed - left-sided ureteral stone not seen; stent placed. Likely passed stone. Pancreatitis nearly biochemically resolved. NSAID induced? (had been taking NSAIDs leading up to admission) Abd pain resolved. Cut fluid rate on IVF. Allow clears. Likely home in am. Lance Lynch MD Subjective Patient with improved pain in general, but still states she is having pretty significant pain left flank with radiation to groin. States she denies any hematuria, but endorses frequency with occassional dysuria. Pain medications have been successful at keep pain under control. Denies fever, chills, nausea or vomiting currently. Discussed findings of 4mm obstructing stone and that we have placed consult for Urology for possible intervention. All questions/concerns addressed. Review of Systems Review of Systems: All systems reviewed & are unremarkable except as noted in HPI & below Constitutional: no fever and no chills Ear, Nose, Mouth, Throat: no sore throat and no dysphagia Respiratory: no cough and no dyspnea Cardiovascular: no chest pain and no palpitations Gastrointestinal: + abdominal pain; no nausea, no vomiting, no constipation and no diarrhea/loose stools Genitourinary: + dysuria and + urinary frequency; no urinary incontinence Musculoskeletal: + back pain (left lower) Physical Exam Constitutional: WD/WN, vitals as above no acute distress Eyes: + anicteric sclerae and PERRL ENMT: external ear and nose normal, oropharynx normal Neck: trachea midline, no thyromegaly Respiratory: normal respiratory effort, lungs clear to auscultation Cardiovascular: RRR, no murmur, no edema Gastrointestinal (Abdomen): Inspection/Auscultation: abdomen normal to inspection and normal bowel sounds Percussion/Palpation: + abdomen tender (LLQ); no guarding and abdomen not rigid Musculoskeletal: no cyanosis or clubbing, extremities motor strength 5/5 Skin: no rashes, warm and dry Neurologic: PERRL, EOMI, accommodation nl, no face palsy, no dysarthria Psychiatric: A+Ox3, euthymic affect Genitourinary: +L CVA tenderness Results & Data Results & Data ([facility]) Vital Signs (Past 12 Hours) Vital Signs Temp Pulse Resp BP Pulse Ox 06/29/19 07:17 37.0 C 70 18 105/63 98 06/28/19 23:11 36.8 C 69 16 99/65 L 99 Laboratory Results 06/29/19 06/29/19 06/29/19 Range/Units 06:22 06:22 06:22 WBC 4.66 L D (4.8-10.8) K/uL RBC 3.36 L (4.2-5.4) M/uL Hgb 10.3 L (12.0-16.0) g/dL Hct 30.3 L (37-47) % MCV 90.2 (80-100) fL MCH 30.7 (25-34) pg MCHC 34.0 (32-36) g/dL RDW Std Deviation 40.3 (36.4-46.3) fL RDW Coeff of Aime 12.3 (11.5-14.5) % Plt Count 163 (130-400) K/uL MPV 10.3 (7.4-10.4) fL Immature Gran % (Auto) 0.0 % Neut % (Auto) 60.7 % Lymph % (Auto) 29.0 % [place] % (Auto) 8.6 % Eos % (Auto) 1.3 % Baso % (Auto) 0.4 % Immature Gran # (Auto) 0.00 (0.00-0.02) K/uL Neut # (Auto) 2.83 (1.4-6.5) K/uL Lymph # (Auto) 1.35 (1.2-3.4) K/uL [place] # (Auto) 0.40 (0.11-0.59) K/uL Eos # (Auto) 0.06 (0-0.5) K/uL Baso # (Auto) 0.02 (0-0.2) K/uL Sodium 140 (136-145) mmol/L Potassium 3.6 (3.5-5.1) mmol/L Chloride 111 H (98-107) mmol/L Carbon Dioxide 23 (21-32) mmol/L Anion Gap 6.0 (3-11) BUN 10 D (7-18) mg/dl Creatinine 0.56 L D (0.6-1.2) mg/dl Est Cr Clr Drug Dosing 111.5 ml/min Est GFR ( Amer) > 150.0 Est GFR (Non-Af Amer) 129.6 BUN/Creatinine Ratio 17.5 (10-20) Glucose 83 (70-99) mg/dl Calcium 8.0 L (8.5-10.1) mg/dl Total Bilirubin 0.7 (0.2-1) mg/dl AST 13 L (15-37) U/L ALT 12 (12-78) U/L Alkaline Phosphatase 44 L (45-117) U/L Total Protein 6.0 L D (6.4-8.2) gm/dl Albumin 3.0 L (3.4-5.0) gm/dl Globulin 3.0 (2.5-4.0) gm/dl Albumin/Globulin Ratio 1.0 (0.9-2) Triglycerides 55 (0-150) mg/dl Cholesterol 108 (0-200) mg/dl LDL Cholesterol, Calc 62 mg/dl VLDL Cholesterol, Calc 11 mg/dl HDL Cholesterol 35 mg/dl Cholesterol/HDL Ratio 3 Lipase 807 H (73-393) U/L TSH 0.853 (0.300-4.500) uIu/ml HCG, Qual (Negative) Urine Color Urine Appearance (Clear) Urine pH (4.5-7.5) Ur Specific [place] (1.000-1.060) Urine Protein (Negative) Urine Glucose (UA) (Negative) Urine Ketones (Negative) Urine Blood (Negative) Urine Nitrite (Negative) Urine Bilirubin (Negative) Urine Urobilinogen (Negative) Ur Leukocyte Esterase (Negative) Urine RBC (0-4) /hpf Urine WBC (0-5) /hpf Ur Epithelial Cells (0-5) /lpf Calcium Oxalate Crystal (None Prsent) Urine Bacteria (Negative) Urine Mucus (None Prsent) 06/28/19 06/28/19 06/28/19 Range/Units 16:45 13:39 13:39 WBC (4.8-10.8) K/uL RBC (4.2-5.4) M/uL Hgb (12.0-16.0) g/dL Hct (37-47) % MCV (80-100) fL MCH (25-34) pg MCHC (32-36) g/dL RDW Std Deviation (36.4-46.3) fL RDW Coeff of Aime (11.5-14.5) % Plt Count (130-400) K/uL MPV (7.4-10.4) fL Immature Gran % (Auto) % Neut % (Auto) % Lymph % (Auto) % [place] % (Auto) % Eos % (Auto) % Baso % (Auto) % Immature Gran # (Auto) (0.00-0.02) K/uL Neut # (Auto) (1.4-6.5) K/uL Lymph # (Auto) (1.2-3.4) K/uL [place] # (Auto) (0.11-0.59) K/uL Eos # (Auto) (0-0.5) K/uL Baso # (Auto) (0-0.2) K/uL Sodium 137 (136-145) mmol/L Potassium 3.5 (3.5-5.1) mmol/L Chloride 106 (98-107) mmol/L Carbon Dioxide 25 (21-32) mmol/L Anion Gap 6.0 (3-11) BUN 17 (7-18) mg/dl Creatinine 0.94 (0.6-1.2) mg/dl Est Cr Clr Drug Dosing 68.3 ml/min Est GFR ( Amer) 97.7 Est GFR (Non-Af Amer) 84.3 BUN/Creatinine Ratio 18.3 (10-20) Glucose 92 (70-99) mg/dl Calcium 8.8 (8.5-10.1) mg/dl Total Bilirubin 0.6 (0.2-1) mg/dl AST 12 L (15-37) U/L ALT 17 (12-78) U/L Alkaline Phosphatase 45 (45-117) U/L Total Protein 7.7 (6.4-8.2) gm/dl Albumin 4.1 (3.4-5.0) gm/dl Globulin 3.6 (2.5-4.0) gm/dl Albumin/Globulin Ratio 1.1 (0.9-2) Triglycerides (0-150) mg/dl Cholesterol (0-200) mg/dl LDL Cholesterol, Calc mg/dl VLDL Cholesterol, Calc mg/dl HDL Cholesterol mg/dl Cholesterol/HDL Ratio Lipase 4437 H 9259 H (73-393) U/L TSH (0.300-4.500) uIu/ml HCG, Qual (Negative) Urine Color [place] Urine Appearance Slightly Cloudy A (Clear) Urine pH (4.5-7.5) Ur Specific [place] 1.023 (1.000-1.060) Urine Protein Negative (Negative) Urine Glucose (UA) (Negative) Urine Ketones (Negative) Urine Blood (Negative) Urine Nitrite (Negative) Urine Bilirubin (Negative) Urine Urobilinogen (Negative) Ur Leukocyte Esterase (Negative) Urine RBC 0-4 (0-4) /hpf Urine WBC 5-10 H (0-5) /hpf Ur Epithelial Cells 10-20 H (0-5) /lpf Calcium Oxalate Crystal Present A (None Prsent) Urine Bacteria 1+ H (Negative) Urine Mucus Present A (None Prsent) 06/28/19 06/28/19 Range/Units 13:39 13:39 WBC 10.66 (4.8-10.8) K/uL RBC 4.05 L (4.2-5.4) M/uL Hgb 12.5 (12.0-16.0) g/dL Hct 36.1 L (37-47) % MCV 89.1 (80-100) fL MCH 30.9 (25-34) pg MCHC 34.6 (32-36) g/dL RDW Std Deviation 39.7 (36.4-46.3) fL RDW Coeff of Aime 12.2 (11.5-14.5) % Plt Count 218 (130-400) K/uL MPV 10.0 (7.4-10.4) fL Immature Gran % (Auto) 0.3 % Neut % (Auto) 76.8 % Lymph % (Auto) 14.0 % [place] % (Auto) 8.5 % Eos % (Auto) 0.3 % Baso % (Auto) 0.1 % Immature Gran # (Auto) 0.03 H (0.00-0.02) K/uL Neut # (Auto) 8.19 H (1.4-6.5) K/uL Lymph # (Auto) 1.49 (1.2-3.4) K/uL [place] # (Auto) 0.91 H (0.11-0.59) K/uL Eos # (Auto) 0.03 (0-0.5) K/uL Baso # (Auto) 0.01 (0-0.2) K/uL Sodium (136-145) mmol/L Potassium (3.5-5.1) mmol/L Chloride (98-107) mmol/L Carbon Dioxide (21-32) mmol/L Anion Gap (3-11) BUN (7-18) mg/dl Creatinine (0.6-1.2) mg/dl Est Cr Clr Drug Dosing ml/min Est GFR ( Amer) Est GFR (Non-Af Amer) BUN/Creatinine Ratio (10-20) Glucose (70-99) mg/dl Calcium (8.5-10.1) mg/dl Total Bilirubin (0.2-1) mg/dl AST (15-37) U/L ALT (12-78) U/L Alkaline Phosphatase (45-117) U/L Total Protein (6.4-8.2) gm/dl Albumin (3.4-5.0) gm/dl Globulin (2.5-4.0) gm/dl Albumin/Globulin Ratio (0.9-2) Triglycerides (0-150) mg/dl Cholesterol (0-200) mg/dl LDL Cholesterol, Calc mg/dl VLDL Cholesterol, Calc mg/dl HDL Cholesterol mg/dl Cholesterol/HDL Ratio Lipase (73-393) U/L TSH (0.300-4.500) uIu/ml HCG, Qual Negative (Negative) Urine Color Urine Appearance (Clear) Urine pH (4.5-7.5) Ur Specific [place] (1.000-1.060) Urine Protein (Negative) Urine Glucose (UA) (Negative) Urine Ketones (Negative) Urine Blood (Negative) Urine Nitrite (Negative) Urine Bilirubin (Negative) Urine Urobilinogen (Negative) Ur Leukocyte Esterase (Negative) Urine RBC (0-4) /hpf Urine WBC (0-5) /hpf Ur Epithelial Cells (0-5) /lpf Calcium Oxalate Crystal (None Prsent) Urine Bacteria (Negative) Urine Mucus (None Prsent) Diagnostic Findings CT A/P IMPRESSION: 1. Obstructing 4 mm distal left ureteral calculus with resultant mild left hydroureteronephrosis. No additional renal or ureteral calculus. 2. Additional findings as above. PG Care Time/CCT Total # of Minutes Spent Total Time Spent with Patient: Total time spent is greater than 50% in coordination of care (as documented) at patient's floor/unit and/or counseling patient: Coding Level of Care Code 16476 Subseq Hosp Care Lvl 2 Diagnoses Renal calculus, left N20.0 Pancreatitis K85.90 Acute pancreatitis complication: unspecified Chronicity: acute Pancreatitis type: unspecified pancreatitis type DVT prophylaxis Z29.9 (1) Pancreatitis Acute pancreatitis complication: unspecified Chronicity: acute Pancreatitis type: unspecified pancreatitis type Qualified Code(s): K85.90 - Acute pancreatitis without necrosis or infection, unspecified
--- NOTE | 2019-06-29 10:52 | Urology Consultation ---
Date of Consultation June 29, 2019 Assessment & Plan (1) Kidney stones: 4 mm left distal ureteral calculus Discussed options of trial of passage, ESWL, cystoscopy, ureteroscopy, laser lithotripsy She would like to have surgical intervention now she does not believe she could delay surgical intervention not long enough to have an ESWL and trial of passage is unappealing given her past week of intermittent, severe pain Risks, benefits discussed We will plan to move to the operating room this morning for definitive treatment of her stone I did discuss discomfort associated with the stent, I would hope that this would be a short duration of stenting She has received ceftriaxone since arrival and likely does not require additional antibiotics right now as she is not yet due for another dose History of Present Illness Attending Physician: Lance Lynch History of Present Illness 23-year-old female with a history of kidney stones who recently began experie ncing left flank pain She tolerated this for about a week with intermittent NSAID use Pain, however, continued to recur and she ultimately ended up with an emergency room visit last night Of note, she had an elevated lipase/amylase on arrival consistent with pancreatitis but these have drastically declined over the past 24 hours She also had imaging in the form of ultrasound and CT at that time which show a 4 mm distal left ureteral calculus with moderate hydronephrosis She continues to have pain now although not quite as severe as previous She has not septic or toxic No nausea at the moment Allergies Allergy/AdvReac Type Severity Reaction Status Date / Time Cipro Allergy Unknown Itching/Irr Verified 06/08/17 07:49 itation ciprofloxacin Allergy Unknown Itching/Irr Verified 06/28/19 15:30 itation nitrofurantoin Allergy Itching Verified 06/28/19 15:30 [From Macrobid] Home Medications Home Medications Medication Instructions Recorded Confirmed Type No Known Home Medications 06/28/19 06/28/19 History Patient History Medical History Kidney stones Surgical History H/O lithotripsy [place] teeth extracted Family History Denies family history of Kidney stones Pancreatitis Social History Preferred Language: Citizen Of [place] Communication Ability: Effective 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 Beliefs That Will Affect Care: None Current Living Situation: Parent Other Information That Helps Us Care for You: No Feels Safe at Home: Yes Safety Concerns: Feels Safe At This Time Smoking Status: Never smoker Do You Dip or Chew Tobacco: No ; Second Hand Exposure: No ; Tobacco Cessation Education Requested by Patient: No Hx Alcohol Use: No Hx Substance Use: No Review of Systems Constitutional: no fever, no chills and no fatigue Eyes: no worsening vision Ear, Nose, Mouth, Throat: no facial pain and no pain with swallowing Respiratory: no cough and no dyspnea Cardiovascular: no chest pain and no palpitations Gastrointestinal: + abdominal pain and + nausea; no vomiting Genitourinary: no dysuria, no difficulty urinating, no urinary frequency and no hematuria Musculoskeletal: no back pain Integumentary: no rash and no urticaria Neurologic: no gait abnormality and no unsteadiness Psychiatric: no behavioral changes and no depression Endocrine: no fatigue Physical Exam Constitutional: well developed and well nourished Neck: neck nontender Respiratory: normal respiratory effort; no respiratory distress and does not use accessory muscles Cardiovascular: Rate/Rhythm: regular rate Vessels: radial pulses present Extremities: no edema Gastrointestinal (Abdomen): Inspection/Auscultation: abdomen normal to inspection Percussion/Palpation: abdomen soft; abdomen nontender and no guarding Musculoskeletal: Head/Neck/Chest: normocephalic and head atraumatic Extremities: extremities normal to inspection Skin: no rashes and no lesions Trauma: no evidence of skin trauma Neurologic: awake; not obtunded Speech / Cognition: normal speech Motor/Sensory: no tremor Psychiatric: Orientation: alert and oriented x 3 Lymphatic: no lymphadenopathy Results & Data Vital Signs (Past 12 Hours) Vital Signs Temp Pulse Resp BP Pulse Ox 06/29/19 07:17 37.0 C 70 18 105/63 98 06/28/19 23:11 36.8 C 69 16 99/65 L 99 PG Care Time/CCT Total # of Minutes Spent Total Time Spent with Patient: Total time spent is greater than 50% in coordination of care (as documented) at patient's floor/unit and/or counseling patient: Coding Level of Care Code 02845 Inpt Consult Level 4 Diagnoses Kidney stones N20.0
[2019-06-29] MEDS ORDERED: MIDAZOLAM HCL 1 MG/ML 2ML VIAL ONE (10:56)
[2019-06-29] MEDS ORDERED: DEXAMETHASONE SOD INJ 4 MG/ML VIAL ONE (10:56)
[2019-06-29] MEDS ORDERED: fentaNYL citrate 100 MCG/2 ML VIAL ONE ×2 (10:56→12:01)
[2019-06-29] MEDS ORDERED: LIDOCAINE HCL 2% 2 ML VIAL/AMP(20MG/ML) INFIL ONE (10:56)
[2019-06-29] MEDS ORDERED: PROPOFOL IV EMULSION 10 MG/ML 20 ML VIAL IV ONE ×2 (10:56→12:07)
[2019-06-29] MEDS ORDERED: ONDANSETRON INJ 2 MG/ML 2 ML VIAL ONE (10:56)
[2019-06-29] MEDS ORDERED: IOTHALAMATE MEGLUMINE II 17.2% 250 ML VIAL ONE (11:09)
[2019-06-29] MEDS ORDERED: fentaNYL citrate 100 MCG/2 ML VIAL IV PRN (11:27)
[2019-06-29] MEDS ORDERED: ONDANSETRON INJ 2 MG/ML 2 ML VIAL IV PRN (11:27)
[2019-06-29] MEDS ORDERED: ePHEDrine sulfate 50 MG/ML AMP IV PRN (11:27)
[2019-06-29] MEDS ORDERED: ATROPINE SULFATE 0.1 MG/ML 10ML SYR IV PRN (11:27)
--- NOTE | 2019-06-29 11:27 | Anesthesiology Consultation ---
Date of Service June 29, 2019 Assessment & Plan (1) Encounter for pre-operative examination: Chart Review Chart Review: Acceptable Risk for Surgery and Patient NOT seen in Pre Admission Testing Consults Requested none ASA ASA1 Proposed Anesthesia Anesthesia Type: General Risk / Benefits Reviewed With: PT / POA / Parent / Guardian, Accepts Plan and Informed Consent Obtained History Surgery Operation Date: 06/29/19 10:50 Proposed Procedures p Cystoscopy - Nestor Marrero MD s Laser Lithotripsy Hol[place] - MD estephanie Helms Ureteral Stent Insertion/Removal - Nestor Marrero MD Height/Weight Height: 5 ft 3 in Weight: 46 kg Allergies Allergy/AdvReac Type Severity Reaction Status Date / Time Cipro Allergy Unknown Itching/Irr Verified 06/08/17 07:49 itation ciprofloxacin Allergy Unknown Itching/Irr Verified 06/28/19 15:30 itation nitrofurantoin Allergy Itching Verified 06/28/19 15:30 [From Macrobid] Medications Home Medications Medication Instructions Recorded Confirmed Last Taken No Known Home Medications 06/28/19 06/28/19 Unknown Active Medications Generic Name Dose Route Start Last Admin Trade Name Freq PRN Reason Stop Dose Admin Lactated Ringer's 1,000 mls @ 175 mls/hr 06/28/19 17:47 06/29/19 06:23 Lr IV 07/28/19 17:46 175 mls/hr .[id number] MARYANN Administration Ceftriaxone Sodium 1,000 mg/ 50 mls @ 100 mls/hr 06/28/19 18:00 06/28/19 19:23 Dextrose IV 07/03/19 17:59 Infused Q24H MARYANN Infusion Protocol Ioversol 92 ml 06/28/19 18:33 06/28/19 18:34 Optiray 320 100ml IV 07/02/19 18:32 92 ml ONCE PRN Administration Interaction Checking Tamsulosin HCl 0.4 mg 06/28/19 19:45 06/29/19 08:26 Flomax PO 07/28/19 19:44 0.4 mg QAM MARYANN Administration Past Medical History Medical History Kidney stones Exercise / Class Metabolic Activity II 4-5 Yardwork/Stairs/Walk up hill Past Family History Family History Denies family history of Kidney stones Pancreatitis Past Surgical History Surgical History H/O lithotripsy [place] teeth extracted Past Anesthesia History No Hx of Anesthesia Complications and No Family Hx of Anesthesia Complications History of PONV No Hx of PONV and No Hx of Motion Sickness Social History Smoking Status: Never smoker Do You Dip or Chew Tobacco: No Hx Alcohol Use: No Alcohol type: hard liquor alcohol intake frequency: holidays/special occasions only Hx Substance Use: No substance use type: does not use Physical Exam Vital Signs Last Vital Signs Temp 37.0 C 06/29/19 07:17 Pulse 70 06/29/19 07:17 Resp 18 06/29/19 07:17 BP 105/63 06/29/19 07:17 Pulse Ox 98 06/29/19 07:17 ENMT Mouth: no dentition abnormality Thyromental Distance: > or= 3.5 Finger Breadths Mallampati Class: II Neck normal visual inspection Respiratory normal respiratory effort Auscultation: lungs clear to auscultation bilaterally Cardiovascular Rate/Rhythm: regular rate and regular rhythm Psychiatric Orientation: alert Testing Laboratory Results 06/29/19 06:22 06/29/19 06:22 Urine Color [place] 06/28/19 13:39 Urine Appearance Slightly Cloudy (Clear) A 06/28/19 13:39 Urine pH (4.5-7.5) 06/28/19 13:39 Ur Specific [place] 1.023 (1.000-1.060) 06/28/19 13:39 Urine Protein Negative (Negative) 06/28/19 13:39 Urine Glucose (UA) (Negative) 06/28/19 13:39 Urine Ketones (Negative) 06/28/19 13:39 Urine Nitrite (Negative) 06/28/19 13:39 Ur Leukocyte Esterase (Negative) 06/28/19 13:39 Urine RBC 0-4 /hpf (0-4) 06/28/19 13:39 Urine WBC 5-10 /hpf (0-5) H 06/28/19 13:39 Ur Epithelial Cells 10-20 /lpf (0-5) H 06/28/19 13:39 06/28/19 13:39 Urine Culture - Preliminary Urine,Clean Catch Pin-point growth present, reincubating.
--- NOTE | 2019-06-29 12:24 | Operative Report ---
PG Post Operative Report Pre & Post Diagnosis Operation Date: 06/29/19 10:50 Pre-Op Diagnosis: left ureteral stone Post-Op Diagnosis: passed left ureteral stone I identified the patient and participated in the time-out.: Yes Procedure Operation Date: 06/29/19 10:50 Actual Procedures p Cystoscopy(Not Applicable) - Nestor Marrero MD s Left Ureteral Stent Insertion(Left) - Nestor Marrero MD Surgeon Luke Marrero MD Hand Tube Bender None Estimated Blood Loss 0 Findings Consistent with Post-Op Diagnosis Specimens None Description of Procedure The patient was identified in the preoperative holding area, appropriate informed consents were reviewed and completed and the patient was transferred to the operative suite. Upon arrival, appropriate antibiotics and anesthesia were administered and the patient was placed in dorsal lithotomy position and prepped and draped in sterile fashion. To begin the case I passed a 22 [place] cystoscope with 30 degree lens, inspection of the bladder was conducted. She was noted to have some erythema surrounding the left UO as well as overlying the presumed area of the intramural ureter. No stones are visualized within the bladder. Right ureteral orifice was unremarkable in orthotopic position. Following my inspection I turned my attention to the left UO and cannulated with a sensor wire which was advanced to the kidney without difficulty or resistance. Of note fluoroscopic evaluation failed to reveal any opacities along the course of the ureter or definitively within the kidney. Following placement of the wire I withdrew the cystoscope and reentered with a semirigid ureteroscope which was guided into the distal left ureter. There was some inflammation appreciated in the distal left ureter but no stones visualized. I advanced the scope to its maximal extent possible seeing no stones. By fluoroscopic estimation this would have reached close to the UPJ. After confirming a clear ureter with several passes of the scope, I elected to withdraw the scope and conclude the case. I work on the premise that she has already passed her stonelikely overnight or this morning. I did place a ureteral stent secondary to the inflammation and passage of the ureteroscope. I have plan to remove this within 2 to 3 days. There were no complications, she tolerated the procedure well and was extubated and taken to the PACU in stable condition. I attest to the content of the Intraoperative Record and any orders documented therein. Any exceptions are noted below.
--- NOTE | 2019-06-29 12:35 | Fluoroscopy Report ---
FL KUB CLINICAL HISTORY: CYSTO COMPARISON STUDY: CT of the abdomen and pelvis June 28, 2019. FLUOROSCOPY TIME: 4 seconds. FLUOROSCOPIC IMAGES: 2 FINDINGS: Fluoroscopy was provided for left retrograde exam with ureteral stent insertion. Proximal a spect of stent projects over the left renal pelvis. IMPRESSION: Fluoroscopy provided for left retrograde exam with ureteral stent insertion. ACT 112: Negative or not required by law. Electronically signed by: Alberto Herrera M.D. 06/29/2019 12:34 PM
[2019-06-29] MEDS ORDERED: KETOROLAC 30 MG/ML VIAL ONE (12:36)
--- NOTE | 2019-06-29 12:50 | Discharge Summary ---
Date of Service June 29, 2019 Admission HPI Per Admitting Provider 23 year old white female with PMH significant for nephrolithiasis presented to emergency department for left flank and abdominal pain that started last Sunday and worsened to the point where she was no longer able to take the pain. THe patient rates the pain as a 5/10 after receiving toradol, but states it had been a 9/10 this morning. She states her last alcoholic beverage was 1/2 mimosa June 18 and she has never had gallstones in the past. She states she thought she had a kidney stone because she has had a significant history with these. She has been seen by Dr. Warner and Dr. Reyes in the past and states she believes her last kidney stone was one year ago that she was able to pass with medication and that her last lithotripsy was approximately 2 years ago per her account. She states she had been rotating Motrin and ibuprofen, 2 tablets each, around the clock, and had taken 4 ibuprofen before bed last evening. Eating does not make the pain better or worse. Denies any epigastric pain at this time. No nausea or vomiting. Denies fever or chills. Endorses urinary symptoms such as frequency. Of note, she states she had started Azol on Sunday in hopes of helping the stone pass. She also notes that she did have a prescription for a tooth infection two weeks ago but will ask her mother to see if she can find the bottle to determine what this was. She is not on any home medications. Denies a ny significant PMH outside of stones, which she states she had a KUB done earlier this year but was told she had some stool burden and had taken Miralax three times this week and had resolved constipation. Denies any family history of gallstones, elevated triglycerides or lipid panel. ER Course: 1L NSS. TOradol 10mg IV x 1. WBC 10.6k. H/h 12.5/36. Plt 218. BMP unremarkable. AST low at 12. Lipase 9259. UA slightly cloudy, 1+ bacteria, 5- 10wbc, 10-20epi, +calcium oxalate crystals. Admission Exam Per Admitting Provider Constitutional: WD/WN, vitals as above no acute distress Eyes: + anicteric sclerae and PERRL ENMT: external ear and nose normal, oropharynx normal Neck: trachea midline, no thyromegaly Respiratory: normal respiratory effort, lungs clear to auscultation Cardiovascular: RRR, no murmur, no edema Gastrointestinal (Abdomen): normal bowel sounds, soft, nontender, no hepatosplenomegaly Percussion/Palpation: no guarding and abdomen not rigid Musculoskeletal: no cyanosis or clubbing, extremities motor strength 5/5 Skin: no rashes, warm and dry Neurologic: PERRL, EOMI, accommodation nl, no face palsy, no dysarthria Psychiatric: A+Ox3, euthymic affect Genitourinary: LEFT sided CVA tenderness Principal Diagnosis Left Obstructing Renal Calculi Discharge Exam Constitutional WD/WN, vitals as above no acute distress Eyes + anicteric sclerae and PERRL ENMT external ear and nose normal, oropharynx normal Neck trachea midline, no thyromegaly Respiratory normal respiratory effort, lungs clear to auscultation Cardiovascular RRR, no murmur, no edema Gastrointestinal (Abdomen) Inspection/Auscultation: abdomen normal to inspection and normal bowel sounds Percussion/Palpation: + abdomen tender (LLQ); no guarding and abdomen not rigid Musculoskeletal no cyanosis or clubbing, extremities motor strength 5/5 Skin no rashes, warm and dry Neurologic PERRL, EOMI, accommodation nl, no face palsy, no dysarthria Psychiatric A+Ox3, euthymic affect Genitourinary decreased CVA tenderness Lymphatic no cervical or axillary lymphadenopathy Discharge Data Allergies Allergy/AdvReac Type Severity Reaction Status Date / Time Cipro Allergy Unknown Itching/Irr Verified 06/08/17 07:49 itation ciprofloxacin Allergy Unknown Itching/Irr Verified 06/28/19 15:30 itation nitrofurantoin Allergy Itching Verified 06/28/19 15:30 [From Macrobid] Consultations 06/28/19 15:19 ED Decision to Admit Stat 06/28/19 21:03 Consult Urology Routine Procedures Performed Operation Date: 06/29/19 10:50 Actual Procedures p Cystoscopy(Not Applicable) - Nestor Marrero MD s Left Ureteral Stent Insertion(Left) - Nestor Marrero MD Ordered Studies 06/28/19 13:33 US renal/blad retro comp Stat 06/28/19 18:04 CT Abd and Pelvis [CT abd pelvis IV con only] Urgent 06/29/19 11:11 FL KUB Routine FL fluoroscopy <1hr Routine Hospital Course (1) Renal calculus, left: * Strong personal history. Last lithotripsy 2 years ago, per patient. Had stones approx 1 year ago, managed conservatively. * Placed on Rocephin IV empirically * Follow UA c/s * CT A/P evening of 06/27 reveal 4mm obstructing distal left ureteral calculus with resultant mild left hydroureteronephrosis * Urology consulted -- appreciate recommendations/assistance * NPO * Continue LR @ 175cc/hr (already on for acute pancreatitis) * Plan for OR this afternoon for intervention with Dr. Marrero (2) Pancreatitis: * 23 female with hx nephrolithiasis admitted with lipase 9259. Denies recent etoh use. Patient also with possible kidney stones -- calcium oxalate on UA. Renal US without evidence for obstruction or calculi. Possible acute pancreatitis in setting of motrin/ibuprofen use as no other causes identified. * Lipid panel wnl, TSH wnl * Lipase improved to 807 from 9259 on admission * Supportive treatment * LR @ 175cc/hr --> could transition to PO intake later this evening or in the morning * Zofran IV prn nausea, morphine prn pain. Avoided NSAIDs (3) DVT prophylaxis: * Low risk -- SCDs, ambulation encouraged Dispo: OR this afternoon with Dr. aMrrero. Likely discharge Sunday Discharge Plan Discharge Items Reason For Visit: PANCREATITIS, POSSIBLE KIDNEY STONES Stand-Alone Forms: My [facility] [employer] Medications and DC Order Prescriptions: No Action No Known Home Medications RF: 0 Admission Data Admit Date/Time: 06/28/19 16:11 Attending Provider: Lance Lynch Admit Provider: Lance Lynch Primary Care Provider: Jameel Santos Other Providers: Lance Lynch ; Seth Warner Coding Diagnoses Renal calculus, left N20.0 Pancreatitis K85.90 Acute pancreatitis complication: unspecified Chronicity: acute Pancreatitis type: unspecified pancreatitis type DVT prophylaxis Z29.9
--- NOTE | 2019-06-29 14:00 | Anesthesiology Progress Note ---
Date of Service June 29, 2019 Anesthesia Post Procedure Vital Signs Vital Signs: Temp Pulse Pulse Resp BP Pulse Ox 06/29/19 13:44 36.4 C L 67 16 93/63 L 99 06/29/19 13:18 36.9 C 63 16 102/63 99 06/29/19 13:05 37 C 70 18 109/70 100 06/29/19 12:55 78 17 112/76 99 06/29/19 12:47 36.8 C 100 H 18 109/78 100 06/29/19 07:17 37.0 C 70 18 105/63 98 06/28/19 23:11 36.8 C 69 16 99/65 L 99 06/28/19 17:49 37.0 C 80 16 112/76 98 06/28/19 16:55 81 18 111/67 98 06/28/19 14:26 112 H 20 131/88 100 Pain Intensity Left Flank: Pain Intensity: 2 Transfer of Care Handoff Completed per policy Notes Mental Status: alert / awake / arousable Patient Amnestic to Procedure: Yes Nausea / Vomiting: adequately controlled Pain: adequately controlled Airway Patency, RR, SpO2: stable & adequate BP & HR: stable & adequate Hydration State: stable & adequate Anesthetic Complications: no major complications apparent
[2019-06-29] MEDS ORDERED: ONDANSETRON 4 MG OD TAB PO PRN (16:18)
[2019-06-29] MEDS: cefTRIAXone SODIUM 1,000 MG in DEXTROSE 5% 50 ML IV SCH (17:12)
[2019-06-29] MEDS: OXYCODONE/ACETAMINOPHEN 5mg/325mg TAB PO PRN (21:45)
[2019-06-30 06:36] LABS: Hematocrit (blood only) 31.6 % (37-47); Hemoglobin 10.8 g/dL (12.0-16.0); Mean Corpuscular Hemoglobin 29.9 pg (25-34); Mean Corpuscular Hgb Conc 34.2 g/dL (32-36); Mean Corpuscular Volume 87.5 fL (80-100); Mean Platelet Volume 10.4 fL (7.4-10.4); Platelet Count 186 K/uL (130-400); RDW Coefficient of Variation 12.1 % (11.5-14.5); RDW Standard Deviation 38.8 fL (36.4-46.3); Red Blood Count 3.61 M/uL (4.2-5.4); White Blood Count 12.35 K/uL (4.8-10.8)
[2019-06-30 07:16] LABS: BUN Creatinine Ratio 13.2 (10-20); Calcium 8.6 mg/dl (8.5-10.1); Creatinine Clr Calc Pharmacy 109.6 ml/min; Est GFR (African American) 149.3; Est GFR (Non-African American) 128.8; Potassium 3.8 mmol/L (3.5-5.1)
[2019-06-30] MEDS: OXYCODONE/ACETAMINOPHEN 5mg/325mg TAB PO PRN (07:45)
[2019-06-30] MEDS: TAMSULOSIN HCL 0.4 MG CAP PO SCH (07:46)
[2019-06-30] MEDS: LACTATED RINGER'S 1,000 ML IV SCH (08:46)
--- NOTE | 2019-06-30 13:32 | Discharge Summary ---
Date of Service June 30, 2019 Admission HPI Per Admitting Provider 23 year old white female with PMH significant for nephrolithiasis presented to emergency department for left flank and abdominal pain that started last Sunday and worsened to the point where she was no longer able to take the pain. THe patient rates the pain as a 5/10 after receiving toradol, but states it had been a 9/10 this morning. She states her last alcoholic beverage was 1/2 mimosa June 18 and she has never had gallstones in the past. She states she thought she had a kidney stone because she has had a significant history with these. She has been seen by Dr. Warner and Dr. Reyes in the past and states she believes her last kidney stone was one year ago that she was able to pass with medication and that her last lithotripsy was approximately 2 years ago per her account. She states she had been rotating Motrin and ibuprofen, 2 tablets each, around the clock, and had taken 4 ibuprofen before bed last evening. Eating does not make the pain better or worse. Denies any epigastric pain at this time. No nausea or vomiting. Denies fever or chills. Endorses urinary symptoms such as frequency. Of note, she states she had started Azol on Sunday in hopes of helping the stone pass. She also notes that she did have a prescription for a tooth infection two weeks ago but will ask her mother to see if she can find the bottle to determine what this was. She is not on any home medications. Denies any significant PMH outside of stones, which she states she had a KUB done earlier this year but was told she had some stool burden and had taken Miralax three times this week and had resolved constipation. Denies any family history of gallstones, elevated triglycerides or lipid panel. ER Course: 1L NSS. TOradol 10mg IV x 1. WBC 10.6k. H/h 12.5/36. Plt 218. BMP unremarkable. AST low at 12. Lipase 9259. UA slightly cloudy, 1+ bacteria, 5- 10wbc, 10-20epi, +calcium oxalate crystals. Principal Diagnosis Kidney stone Discharge Exam Constitutional WD/WN, vitals as above Respiratory normal respiratory effort, lungs clear to auscultation Cardiovascular RRR, no murmur, no edema Gastrointestinal (Abdomen) Inspection/Auscultation: abdomen normal to inspection and normal bowel sounds; abdomen not distended Percussion/Palpation: abdomen soft; abdomen nontender Musculoskeletal no cyanosis or clubbing, extremities motor strength 5/5 Skin no rashes, warm and dry Neurologic moves all extremities and awake Psychiatric A+Ox3, euthymic affect Discharge Data Allergies Allergy/AdvReac Type Severity Reaction Status Date / Time Cipro Allergy Unknown Itching/Irr Verified 06/08/17 07:49 itation ciprofloxacin Allergy Unknown Itching/Irr Verified 06/28/19 15:30 itation nitrofurantoin Allergy Itching Verified 06/28/19 15:30 [From Macrobid] Consultations 06/28/19 15:19 ED Decision to Admit Stat 06/28/19 21:03 Consult Urology Routine Procedures Performed Operation Date: 06/29/19 10:50 Actual Procedures s Cystoscopy(Not Applicable) - Nestor Marrero MD p Left Ureteral Stent Insertion(Left) - Nestor Marrero MD Ordered Studies 06/28/19 13:33 US renal/blad retro comp Stat 06/28/19 18:04 CT Abd and Pelvis [CT abd pelvis IV con only] Urgent 06/29/19 11:11 FL KUB Routine FL fluoroscopy <1hr Routine Hospital Course (1) Renal calculus, left: * Strong personal history. Last lithotripsy 2 years ago, per patient. Had stones approx 1 year ago, managed conservatively. * Placed on Rocephin IV empirically - per urology, will go home with 2 more days of Bactrim * UC grew lactobacillus * CT A/P evening of 06/27 reveal 4mm obstructing distal left ureteral calculus with resultant mild left hydroureteronephrosis * Urology consulted -- Cysto 06/28 which did not reveal a stone, likely passed the night before or that morning. Stent placed * Patient having some discomfort with stent. Also with leukocytosis this morning. Records show dexamethasone pulled during surgery so this is likely the reason as patient has no fever or systemic illness symptoms. Discussed with urology and they are ok with discharge today. She will follow up with them for stent removal tomorrow. Discussed with patient warning signs of worsening illness and when to call the doctor or return to ED. (2) Pancreatitis: * 23 female with hx nephrolithiasis admitted with lipase 9259. Denies recent etoh use. Possible acute pancreatitis in setting of motrin/ibuprofen use as no other causes identified. * Lipid panel wnl, TSH wnl * Lipase improved to normal 06/29, no abdominal pain, no pancreatic changes on CT, tolerating diet * Given LR @ 175cc/hr (3) DVT prophylaxis: * Low risk -- SCDs, ambulation encouraged Dispo: home, will follow up with urology for stent removal tomorrow. Total Time Total Time Spent Total Time Spent (In Minutes): greater than 30 minutes Discharge Plan Discharge Items Patient Disposition: Home - Self-Care Reason For Visit: PANCREATITIS, POSSIBLE KIDNEY STONES Discharge Diagnosis: Pancreatitis, kidney stone You have been hospitalized for an urgent problem which required surgery. During your stay at [facility], we have made an effort to correct the problem that brought you to the hospital while keeping you as comfortable as possible. Surgery and medications were used to bring your condition under control and your discharge instructions will include directions for any medications you should take after leaving the hospital. Please make sure to follow the advice of your surgeon regarding follow up with the surgeon and with your primary care provider. Activity: Per Instructions section Non-emergency contact: Urologist Call non-emergency contact if: you have any medication questions, your symptoms worsen, your pain is not controlled, your pain is worsening and you have a fever Follow-up/Referrals: Jameel Santso [Primary Care Provider] - Diet: Regular Addtl Attending Provider Instructions: You were found to have an episode of acute pancreatitis which is possibly from recently ibuprofen/motrin use, as labs and other diagnostics have been without significant findings. Your lipase, which is one lab that can indicate pancreatitis is now normal. Your CT did not show any inflammation or changes in the pancreas. Please avoid ibuprofen and alcohol for now and discuss with your primary care provider if you are considering resuming either. You were also found to have a 4mm kidney stone on imaging which may have passed overnight or yesterday morning, as it was not found during scope. You were found to have some inflammation, which may have just been some irritation from the stone, but a stent was placed to be safe. It is normal for the stent to cause some discomfort. As per Dr. Marrero, you are being sent with a course of Bactrim (antibiotic) for 48 hours. You may utilize Tylenol for pain, and a short course of pain medication has also been sent to your pharmacy. Please utilize this only for breakthrough pain. Note, pain medication contains acetaminophen (Tylenol). Please make sure not to exceed 3,000mg (six tablets) in a 24 hour period of time. Please remember to stay well hydrated and drink plenty of fluids. You will need to follow up with Dr. Marrero's office on Sunday for stent removal. They will call you with an appointment time. Please follow up with your primary care provider in the next month. Please return to the emergency room if you develop any fever, worsening pain, or for any symptoms that are concerning for you. It has been a pleasure being a part of the medical team taking care of you d uring this hospitalization. Take care! Pending Studies at Discharge: No Stand-Alone Forms: My [facility], Opioid Pain Management, Smoking Cessation Medications and DC Order Prescriptions: New sulfamethoxazole-trimethoprim 800-160 mg tablet 1 tab PO BID Qty: 4 RF: 0 ondansetron 4 mg tablet,disintegrating 4 mg PO DAILY PRN (Reason: nausea and vomiting) 4 Days Qty: 10 RF: 0 oxycodone-acetaminophen [Percocet] 5-325 mg Tablet 1 tab PO Q6H PRN (Reason: pain) Qty: 8 RF: 0 Discharge Orders: Discharge Order (Routine); Ordered 06/30/19 Ordered By: Vy Cervantes/Other Patient Handouts: Sulfamethoxazole Trimethoprim SMX-TMP tablets, Acetaminophen Oxycodone tablets, Ondansetron oral dissolving tablet Admission Data Admit Date/Time: 06/28/19 16:11 Attending Provider: Roland Gregorio Admit Provider: Lance Lynch Primary Care Provider: Jameel Santos Other Providers: Lance Lynch ; Seth Warner Other Interventions: Discharge Summary Assessment (RN) Last Done: 06/30/19 13:33 DC Date/Time DO NOT enter until pt leaves facility: 06/30/19 14:30 Supervising Physician Co-Signing Physician Notes Attending note: patient seen and examined with Vy ELIZABETH. I agree with her discharge summary. I personally reviewed the labs and imaging findings. patient feeling better, some pain with stent but a lot less, eating well, no nausea plans to follow up closely with urology for stent removal - Ureteral stone, s/p stent: renal function stable, making adequate urine, less pain, close follow up with urology arranged - Pancreatitis: resolved, lipase down to normal after NPO and IV fluids eating well the day of discharge, no epigastric pain or nausea Coding Level of Care Code D/C Day Management >30 mins Diagnoses Renal calculus, left N20.0 Pancreatitis K85.90 Acute pancreatitis complication: unspecified Chronicity: acute Pancreatitis type: unspecified pancreatitis type DVT prophylaxis Z29.9
== END 2019-06-30 14:30 | disposition home or self-care (01) | DRG 659 ==
LOC: ED 13:18 → 3E 16:11 → SUATTDRO 16:11 → 3E 17:26

== ENCOUNTER 2022-01-05 17:06 | Inpatient (IN) ==
[2022-01-05 17:36] LABS: Basophils # (auto) 0.02 K/uL (0-0.2); Basophils % (auto) 0.2 %; Eosinophils # (auto) 0.13 K/uL (0-0.50); Hematocrit (blood only) 32.1 % (34.1-44.9); Immature Granulocytes # (auto) 0.05 K/uL (0.00-0.02); Immature Granulocytes % (auto) 0.4 %; Lymphocytes # (auto) 1.23 K/uL (1.2-3.4); Lymphocytes % (auto) 9.3 %; Mean Corpuscular Hemoglobin 30.6 pg (25.0-34.0); Mean Corpuscular Hgb Conc 34.3 g/dL (32.0-36.0); Mean Corpuscular Volume 89.4 fL (80.0-100.0); Mean Platelet Volume 10.9 fL (9.4-12.3); Monocytes # (auto) 0.92 K/uL (0.24-0.82); Neutrophils # (auto) 10.87 K/uL (1.4-6.5); Neutrophils % (auto) 82.1 %; Platelet Count 230 K/uL (130-400); RDW Coefficient of Variation 12.6 % (11.5-14.5); RDW Standard Deviation 40.5 fL (36.4-46.3); Red Blood Count 3.59 M/uL (3.93-5.22); White Blood Count 13.22 K/ul (4.8-10.8)
[2022-01-05 18:01] LABS: Protein Creatinine Ratio Urine 1.1 (0-0.2); Total Protein Urine Random 133.1 mg/dl (0-11.9)
[2022-01-05 18:03] LABS: Albumin Globulin Ratio 1.1 (0.9-2); Albumin Level 3.4 gm/dl (3.4-5.0); BUN Creatinine Ratio 13.8 (10-20); Bilirubin,Total 0.3 mg/dl (0.2-1.0); Calcium 8.7 mg/dl (8.5-10.1); Est GFR (African American) 145.4 ml/min; Est GFR (Non-African American) 125.4 ml/min; Globulin 3.2 gm/dl (2.5-4.0); Potassium 3.8 mmol/L (3.5-5.1); Total Protein 6.6 gm/dl (6.0-8.3)
[2022-01-05] MEDS ORDERED: OXYTOCIN 30 UNITS/500 ML BAG IV PRN ×3 (18:14→23:02)
[2022-01-05] MEDS ORDERED: LIDOCAINE 1% LOCAL 20 ML VIAL INFIL PRN (18:14)
[2022-01-05 18:17] LABS: Influenza A virus by PCR Negative (Neg); Influenza B virus by PCR Negative (Neg); SARS CoV2 RNA(COVID-19)Cepheid NEGATIVE (Negative)
--- NOTE | 2022-01-05 18:17 | History & Physical Report ---
Date of Service January 05, 2022 Assessment & Plan (1) Carrier of group B Streptococcus: (2) Preeclampsia: (3) with 39 completed weeks gestation: (4) RSV (acute bronchiolitis due to respiratory syncytial virus): Plan Patient being admitted for induction for probable preeclampsia, labs normal except P:Cr ratio of 1.1. Pressures better over here but given proteinuria and GA plan to begin induciton. Fetus category one. cx not particularly favorable. Plan to start wtih haley bulb and low dose pit. Then will go up with bulb expulsion. She has tested positive for RSV so will place under contact precautions. epidural on demand. arom if indicated. anticipate . History of Present Illness Chief Complaint: elevated blood pressure Primary Care Provider: Jameel Santos DO Pateint is a 26yowf with iup at 39 6/7 weeks. She presented to the office for a normal visit and was found to have elevated pressures--140s/90s. Has had on/off wooten for several weeks. Denies significant swelling, ruq pain, n/v. Notes good fm. Has felt some cramping. no lof/vb. 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 and Delivery Plans dcelines covid vaccine, has not had Flu vaccine given 12/14/21- MK GBS Positive *Treat in Labor OB Labs: Blood Type AB Positive 05/27/21 Antibody Screen NEGATIVE 05/27/21 Hemoglobin 10.4 g/dl (12.0-16.0) L 10/17/21 Hematocrit 30.4 % (34.1-44.9) L 10/17/21 Mean Corpuscular Volume 89.8 fL (80-100) 05/27/21 Platelet Count 228 K/uL (130-400) 05/27/21 Rubella IgG Antibody Immune (Immune) 05/27/21 Rapid Plasma Reagin Nonreactive (Nonreactive) 05/27/21 Hepatitis B Surface Antigen. NON-REACTIVE (NON-REACTIVE) 05/27/21 Hepatitis C Antibody (EIA) NON-REACTIVE (NON-REACTIVE) 05/27/21 HIV (1&2) Ag and Ab Confirmation NON-REACTIVE (NON-REACTIVE) 05/27/21 Glucose 1 Hour 50 gm Load 95 mg/dl (70-130) 10/17/21 OB Optional Labs: Chlamydia trachomatis RNA NOT DETECTED (NOT DETECTED) 05/27/21 Neisseria gonorrhoeae RNA NOT DETECTED (NOT DETECTED) 05/27/21 Thyroid Stimulating Hormone (TSH) 0.853 uIu/ml (0.300-4.500) 06/29/19 Labs Reviewed: Declines cf/sma--mln cfdna-low risk--mln Declines msafp--mln gbs positive Allergies Allergy/AdvReac Type Severity Reaction Status Date / Time ciprofloxacin Allergy Unknown Itching/Irr Verified 01/05/22 16:06 itation nitrofurantoin Allergy Itching Verified 01/05/22 16:06 [From Macrobid] Home Medications Medication Instructions Recorded Confirmed Type vitamins-iron fumarate 65 1 tab PO DAILY 01/05/22 01/05/22 History mg iron-folic acid 1 mg tablet Patient History Medical History History of chicken pox Kidney stones Surgical History H/O lithotripsy S/P cystoscopy [place] teeth extracted Family History Denies family history of Ovarian cancer Kidney stones Pancreatitis Breast cancer Colorectal cancer Social History Smoking Status: Never smoker Second Hand Exposure: No; Hx Alcohol Use: No Hx Substance Use: No Preferred Language: Chinese Communication Ability: Effective Motor Brakeman Required: No Beliefs That Will Affect Care: None marital status: marital status details: Hernan (30) [phone] Current Living Situation: Spouse Current Living Situation Comment: lives with spouse, dog, cat-spouse changing litter current occupational status: employed current occupation: [employer] Other Information That Helps Us Care for You: No Feels Safe at Home: Yes Safety Concerns: Feels Safe At This Time Assistive Devices: None OB History g0 OB/GYN DOCTOR History noncontributory Physical Exam Constitutional: WD/WN, vitals as above Cardiovascular: Extremities: + edema (tr); no calf tenderness Gastrointestinal (Abdomen): soft, gravid, nt, no ruq pain Psychiatric: A+Ox3, euthymic affect Genitourinary: cx--/-2 toco--mics efm--130s with mod variability, accels to 160s, no decels Results & Data ([facility]) Vital Signs (Past 12 Hours) Vital Signs Temp Pulse Resp BP 01/05/22 17:31 37.1 C 20 01/05/22 18:07 91 H 01/05/22 18:07 128/84 01/05/22 17:32 88 01/05/22 17:32 117/77 01/05/22 17:14 20 01/05/22 17:14 37.1 C 20 01/05/22 17:12 102 H 121/89 01/05/22 17:11 106 H 110/84 Coding Level of Care Code None Diagnoses Carrier of group B Streptococcus Z22.330 Preeclampsia O14.90 with 39 completed weeks gestation Z3A.39 RSV (acute bronchiolitis due to respiratory syncytial virus) J21.0
[2022-01-05 18:20] LABS: RSV by PCR Positive (Neg)
--- NOTE | 2022-01-05 19:48 | Communication Note ---
Date of Service: January 05, 2022 Haley bulb placed after obtaining verbal consent. Cx visualized with speculum. haley bulb placed through cervix and filled with 35cc sterile water. Tolerated well. Will start low dose pitocin. Pressures ok and fetus category one.
[2022-01-05] MEDS: LACTATED RINGER'S 1,000 ML IV PRN (20:15)
[2022-01-05] MEDS ORDERED: BUTORPHANOL TARTRATE 1 MG/ML VIAL IV ONE (22:48)
[2022-01-05] MEDS ORDERED: PENICILLIN G POTASSIUM 6 MU in DEXTROSE 5% 250 ML IV STA (23:02)
--- NOTE | 2022-01-05 23:05 | Labor Progress Brief Note ---
Date of Service January 05, 2022 Subjective Patient noted some lof and sudha fell out on way to the BR. Assessment & Plan (1) with 39 completed weeks gestation: (2) Preeclampsia: (3) Carrier of group B Streptococcus: Plan ruptured, start pcn, start increasing pitocin. fetus category one. anticipate . pressures wnl. Admission and Anticipated Discharge Date Admission Date: January 05, 2022 Physical Exam Physical Exam: sse---+pool cx--4/80/-1 toco--q2-5, pit at 2 efm--125 with mod variability, accels to 150s, no decels Results & Data ([place]) Vital Signs (Past 12 Hours) Vital Signs Temp Pulse Resp BP 01/05/22 19:13 36.5 C 20 01/05/22 17:31 37.1 C 20 01/05/22 22:22 71 01/05/22 22:22 121/83 01/05/22 22:00 18 01/05/22 22:00 36.8 C 18 01/05/22 21:22 85 01/05/22 21:22 120/73 01/05/22 20:21 88 01/05/22 20:21 131/72 01/05/22 20:06 90 01/05/22 20:06 102/74 01/05/22 19:51 100 H 01/05/22 19:51 116/76 01/05/22 19:37 86 01/05/22 19:37 115/72 01/05/22 19:22 108 H 01/05/22 19:22 141/89 H 01/05/22 19:06 88 01/05/22 19:06 125/72 01/05/22 18:52 92 H 01/05/22 18:52 121/85 01/05/22 18:45 89 01/05/22 18:45 116/75 01/05/22 18:07 91 H 01/05/22 18:07 128/84 01/05/22 17:32 88 01/05/22 17:32 117/77 01/05/22 17:14 20 01/05/22 17:14 37.1 C 20 01/05/22 17:12 102 H 121/89 01/05/22 17:11 106 H 110/84 Coding Level of Care Code None Diagnoses with 39 completed weeks gestation Z3A.39 Preeclampsia O14.90 Carrier of group B Streptococcus Z22.330
[2022-01-05] MEDS ORDERED: Nursing to Pharmacy Communication SCH (23:45)
[2022-01-06] MEDS ORDERED: ePHEDrine sulfate 50 MG/ML AMP ONE (01:13)
[2022-01-06] MEDS ORDERED: BUPIVACAINE 0.25% 30 ML VIAL ONE (01:14)
[2022-01-06] MEDS ORDERED: SODIUM CHLORIDE 0.9% INJ 10 ML VIAL ONE (01:14)
[2022-01-06] MEDS ORDERED: LIDOCAINE 2%/EPINEPHRINE 1:200,000 20 ML SDV ONE (01:14)
[2022-01-06] MEDS ORDERED: fentaNYL citrate 100 MCG/2 ML VIAL ONE (01:14)
[2022-01-06] MEDS ORDERED: fentaNYL 2MCG/ML ROPIVACAINE 1.25MG/ML 100 ML BAG EPI ONE (01:14)
[2022-01-06] MEDS ORDERED: ePHEDrine sulfate 50 MG/ML AMP IV PRN (01:18)
[2022-01-06] MEDS ORDERED: ONDANSETRON INJ 2 MG/ML 2 ML VIAL IV PRN (01:18)
[2022-01-06] MEDS ORDERED: diphenhydrAMINE 50 MG/ML VIAL IV PRN (01:18)
[2022-01-06] MEDS ORDERED: NALBUPHINE HCL INJ 10 MG/ML AMP IV PRN (01:18)
[2022-01-06] MEDS ORDERED: NALOXONE HCL 0.4 MG/1 ML VIAL/CARP IV PRN (01:18)
[2022-01-06] MEDS ORDERED: NALOXONE HCL 1 MG in SODIUM CHLORIDE 0.9% 1000ML 1,000 ML IV PRN (01:18)
[2022-01-06] MEDS ORDERED: fentaNYL 2MCG/ML ROPIVACAINE 1.25MG/ML 100 ML BAG EPI PRN (01:18)
--- NOTE | 2022-01-06 01:20 | Anesthesiology Consultation ---
Date of Service January 06, 2022 Assessment & Plan (1) Encounter for pre-operative examination: Chart Review Chart Review: Patient NOT seen in Pre Admission Testing and Acceptable Risk for Labor Epidural Consults Requested none History Height/Weight Height: 5 ft 4 in Weight: 72.575 kg Allergies Allergy/AdvReac Type Severity Reaction Status Date / Time ciprofloxacin Allergy Unknown Itching/Irr Verified 01/05/22 16:06 itation nitrofurantoin Allergy Itching Verified 01/05/22 16:06 [From Macrobid] Medications Home Medications Medication Instructions Recorded Confirmed Last Taken vitamins-iron fumarate 65 1 tab PO DAILY 01/05/22 01/05/22 11/19/21 06:00 mg iron-folic acid 1 mg tablet Active Medications Generic Name Dose Route Start Last Admin Trade Name Freq PRN Reason Stop Dose Admin Lactated Ringer's 1,000 mls @ 125 mls/hr 01/05/22 18:14 01/06/22 00:30 Lr IV 01/07/22 18:13 125 mls/hr .Q8H PRN Infusion L&D Protocol Protocol Oxytocin 30 units in 500 mls @ 8 mls/hr 01/05/22 18:58 01/06/22 00:45 Pitocin IV 01/07/22 18:57 0.48 units/hr .Q24H PRN 8 mls/hr Labor Induction/Augmentation Titration Protocol 0.48 UNITS/HR Past Medical History Medical History History of chicken pox Kidney stones Exercise / Class Metabolic Activity II 4-5 Yardwork/Stairs/Walk up hill Past Family History Family History Denies family history of Ovarian cancer Kidney stones Pancreatitis Breast cancer Colorectal cancer Past Surgical History Surgical History H/O lithotripsy S/P cystoscopy [place] teeth extracted Past Anesthesia History No Hx of Anesthesia Complications and No Family Hx of Anesthesia Complications History of PONV No Hx of PONV and No Hx of Motion Sickness Social History Smoking Status: Never smoker Hx Alcohol Use: No Alcohol type: hard liquor alcohol intake frequency: holidays/special occasions only Hx Substance Use: No substance use type: does not use Physical Exam Vital Signs Last Vital Signs Temp 36.9 C 01/06/22 00:11 Pulse 81 01/06/22 01:15 Resp 18 01/06/22 00:11 BP 130/82 01/06/22 00:21 Pulse Ox 100 01/06/22 01:15 Testing Laboratory Results 01/05/22 17:24 01/05/22 17:24
[2022-01-06] MEDS ORDERED: PENICILLIN G POTASSIUM 3 MU in DEXTROSE 5% 100 ML IV PRN (02:02)
[2022-01-06] MEDS: LACTATED RINGER'S 1,000 ML IV PRN (02:11)
[2022-01-06] MEDS ORDERED: bisacodyL 10 MG SUPP PR PRN (06:05)
[2022-01-06] MEDS ORDERED: OXYTOCIN 30 UNITS/500 ML BAG IV PRN (06:05)
[2022-01-06] MEDS ORDERED: BENZOCAINE 20% AER SPR 82.5 GM CAN EXT PRN (06:05)
[2022-01-06] MEDS ORDERED: HYDROCORTISONE ACETATE 25 MG SUPP PR PRN (06:05)
[2022-01-06] MEDS ORDERED: ACETAMINOPHEN 325 MG TAB PO PRN (06:05)
[2022-01-06] MEDS ORDERED: DIPHTHERIA/TETANUS/PERTUSSIS 0.5 ML SYR/VIAL IM ONE (06:05)
[2022-01-06] MEDS ORDERED: oxyCODONE/ACETAMINOPHEN 5mg/325mg TAB PO PRN (06:05)
--- NOTE | 2022-01-06 06:11 | Delivery Summary ---
Vaginal Delivery Summary Date of Service January 06, 2022 Vaginal Delivery Summary and 3rd Degree LAC Pre-operative Diagnosis: at 39 weeks preeclampsia without severe features RSV Post-operative Diagnosis: same Procedure: haley bulb for ripening pitocin induction epidural third degree laceration repair EBL: 400cc Anesthesia: epidural Procedure: The patient presented from the office for elevated blood pressures. Although pressures were ok here, she dipped +2 protein with a prot/cash applications specialist ratio of 1.1. Diagnosed with preeclampsia and recommended induction. Had a haley bulb placed and low dose pit. Bulb fell out and the patient had srom. She got an epidural and progressed to c/c/+2 The patient pushed for approximately an hour to deliver a viable male infant in malena position. There was a double nuchal cord noted and the and the rest of the infant was then delivered without difficult through it. The baby was vigorous. The nose and mouth were bulb suctioned and the infant was placed in the maternal abdomen for drying and attention. Cord was clamped and cut at one minute . Cord blood and segment obtained. Placenta delivered spontaneous, intact with a three vessel cord. Cervix/sulci/rectum were intact. A third degree perineal laceration was repaired in the normal standard fashion. Hemostasis obtained with dilute pitocin and fundal massage. Apgars were 8/9. Mother and baby doing well at the end of the delivery. [facility] Vaginal Delivery Charge Delivery Type Details: and 3rd Degree LAC
[2022-01-06] MEDS: DOCUSATE SODIUM 100 MG CAP PO SCH ×2 (08:09→20:57)
[2022-01-06] MEDS: PRENATAL VITAMIN 1 TAB PO SCH (08:09)
[2022-01-06] MEDS: IBUPROFEN 600 MG TAB PO PRN ×3 (08:09→20:56)
--- NOTE | 2022-01-06 12:12 | Anesthesia Procedure Note ---
Date of Service January 06, 2022 Anesthesia Post Epidural Note Vital Signs Vital Signs: Temp Pulse Resp BP Pulse Ox O2 Del Method 36.8 C 80 16 122/81 100 01/06/22 09:10 01/06/22 09:10 01/06/22 09:10 01/06/22 09:10 01/06/22 05:55 01/06/22 09:10 Notes Mental Status: alert / awake / arousable and participated in evaluation Nausea / Vomiting: adequately controlled Pain: adequately controlled Airway Patency, RR, SpO2: stable & adequate BP & HR: stable & adequate Hydration State: stable & adequate Neuraxial Anesthesia: was administered and sensory block is resolving Anesthetic Complications: no major complications apparent and Pt Satisfied with anesthetic care Epidural: Removed without complications and With tip intact
[2022-01-07 06:36] LABS: Hematocrit (blood only) 32.2 % (34.1-44.9); Hemoglobin 10.6 g/dl (12.0-16.0)
--- NOTE | 2022-01-07 07:34 | Obstetrical Progress Note ---
Date of Service January 07, 2022 Assessment & Plan (1) state: (2) Preeclampsia: (3) RSV (acute bronchiolitis due to respiratory syncytial virus): Plan 26 yo PP1 from , doing well -Meeting all pp milestones -AB+/rubella immune/ -f/u 6 weeks for appt. Pt desires d/c home today, BPs stable so I think ok to do so. Will get 1 wk BP check Subjective Ambulation: ambulating normally Voiding: no voiding problems Passing Gas:: Yes Diet Tolerance:: regular diet Lochia:: Small Feeding Type:: bottle feeding (supplementing but hand expressing) Pain well managed with medication Review of Systems Denies fevers, chills, n/v, COLLAZO, CP, SOB Physical Exam Constitutional WD/WN, vitals as above no acute distress Respiratory normal respiratory effort, lungs clear to auscultation Cardiovascular RRR, no murmur, no edema Gastrointestinal (Abdomen) Percussion/Palpation: abdomen soft; abdomen nontender fundus firm at umbilicus and NT Musculoskeletal BLE symmetric, nonerythematous, nontender Results & Data ([facility]) Vital Signs (Past 12 Hours) Vital Signs Temp Pulse Resp BP Pulse Ox O2 Del Method 01/07/22 03:27 97.7 F 63 18 126/83 99 Room Air 01/06/22 23:16 98.1 F 80 18 113/76 95 Room Air 01/06/22 20:15 97.9 F 96 H 18 114/78 98 Room Air
[2022-01-07] MEDS: DOCUSATE SODIUM 100 MG CAP PO SCH (08:40)
[2022-01-07] MEDS: IBUPROFEN 600 MG TAB PO PRN (08:40)
[2022-01-07] MEDS: PRENATAL VITAMIN 1 TAB PO SCH (08:40)
[2022-01-07] MEDS ORDERED: bisacodyL 5 MG TABEC PO SCH (20:00)
== END 2022-01-07 18:15 | disposition home or self-care (01) | DRG 768 ==
LOC: OPB 17:06 → 4S1 17:07 → 4E2 01-06 09:10
DX: Z28.310 Unvaccinated for COVID-19; Z88.8 Allergy status to other drugs, medicaments and biological substances; J21.0 Acute bronchiolitis due to respiratory syncytial virus; Z88.1 Allergy status to other antibiotic agents; O99.824 Streptococcus B carrier state complicating childbirth; O14.94 Unspecified pre-eclampsia, complicating childbirth; Z3A.40 40 weeks gestation of pregnancy; O69.89X0 Labor and delivery complicated by other cord complications, not applicable or unspecified; O70.20 Third degree perineal laceration during delivery, unspecified; O99.52 Diseases of the respiratory system complicating childbirth; Z37.0 Single live birth